=== PATIENT | female | born 1960 | race African-American/Black ===

== ENCOUNTER 2016-12-13 14:15 | Emergency (ER) | payer MEDICARE, MEDICAID ==
--- NOTE | 2016-12-13 16:29 | RAD ---
ABDOMEN ONE VIEW: HISTORY: Abdominal pain, starting a few days ago. COMPARISON: 06/07/2011 FINDINGS: One view abdomen shows a nonspecific bowel gas pattern. No suspicious densities in the abdomen or p lukas. No evidence of pneumoperitoneum on this supine projection. Calcifications in the left and right hemipelvis are presumed to be phleboliths. The visualized osseous structures are unremarkable. IMPRESSION: Nonspecific bowel gas pattern. POS: [facility]
== END 2016-12-13 16:45 | disposition home or self-care (01) ==
LOC: ERS 14:15
DX: R10.9 Unspecified abdominal pain (principal); E11.9 Type 2 diabetes mellitus without complications; E78.5 Hyperlipidemia, unspecified; I10 Essential (primary) hypertension; F31.9 Bipolar disorder, unspecified; F41.9 Anxiety disorder, unspecified; F25.9 Schizoaffective disorder, unspecified; F17.210 Nicotine dependence, cigarettes, uncomplicated
CPT/HCPCS: 74000; 93005

== ENCOUNTER 2017-02-02 01:07 | Inpatient (IN) | payer MEDICARE, MEDICAID ==
[2017-02-02 02:21] LABS: #Basophils 0.2 thou/uL (0.0-0.2); #Eosinphils 0.1 thou/uL (0.0-0.7); #Monocytes 1.2 thou/uL (0.11-0.59); #Neutrophils 10.7 thou/uL (1.40-6.50); %Basophils 1.6 % (0.0-1.0); %Eosinophils 0.9 % (0.0-10.0); %Lymphocytes 19.7 % (21.0-51.0); %Monocytes 7.7 % (0.0-10.0); Hematocrit 30.6 % (36.0-47.0); Mean Platelet Volume 7.3 fL (7.4-10.4); White Blood Cell (WBC) Count 15.3 thou/uL (4.8-10.8)
[2017-02-02 02:36] LABS: Lactic Acid - Sepsis 2.2 mmol/L (0.5-2.2)
[2017-02-02 02:40] LABS: ALT (SGPT) 25 U/L (8-55); AST (SGOT) 37 U/L (5-34); Alkaline Phosphatase 254 U/L (40-150); Anion Gap 14 mmol/L (10-20); BUN (Urea Nitrogen) 16 mg/dL (9.8-20.1); Bilirubin, Total 1.1 mg/dL (0.2-1.2); Calc. Creatinine Clearance 0 mL/min (70-130); Calcium 9.8 mg/dL (7.8-10.44); Carbon Dioxide 29 mmol/L (22-29); Chloride 96 mmol/L (98-107); Estimated GFR-MDRD 65; Globulin 4.9 g/dL (2.4-3.5); Protein, Total 8.5 g/dL (6.0-8.3)
[2017-02-02] MEDS ORDERED: cefTRIAXone\\ROCEPHIN 2 GM in Sodium Chloride 0.9% 100 ML IVPB SCH ×2 (03:45→16:00)
[2017-02-02] MEDS ORDERED: Azithromycin 500 MG in Sodium Chloride 0.9% 250 ML 250 ML IVPB SCH (03:45)
--- NOTE | 2017-02-02 10:05 | RAD ---
UPRIGHT PORTABLE CHEST 1 VIEW: HISTORY: A 56-year-old female with chest pain status post coronary artery bypass graft with drainage from lef t leg. FINDINGS: Monitor leads overlie the chest. Minimal enlargement of the cardiomediastinal silhouette. There is bilateral vascular congestion. Minimal right hemidiaphragm elevation with some increased markings in the right base, possibly some subsegmental atelectasis. No confluent pneumonia. IMPRESSION: Bilateral vascular congestion. Borderline heart size. Recent postop midline sternotomy. Probable small right pleural effusion and minimal right lower lobe subsegmental atelectasis. Continue short- term followup. POS: [facility]
[2017-02-02] MEDS ORDERED: Potassium Chloride 20 MEQ TAB PO SCH (10:30)
[2017-02-02] MEDS ORDERED: Furosemide 40 MG/4 ML VIAL SLOW IVP SCH (10:30)
[2017-02-02] MEDS ORDERED: HYDROcodone/Acetaminophen 5/325 mg Tablet PO PRN ×2 (11:11)
[2017-02-02] MEDS: Milk Of Magnesia 30 ML UDCUP PO PRN (11:14)
[2017-02-02] MEDS ORDERED: Aspirin 325 MG TAB PO SCH (11:30)
[2017-02-02] MEDS ORDERED: Metoprolol Tartrate 25 MG TAB PO SCH (11:30)
[2017-02-02] MEDS ORDERED: Levothyroxine Sodium 125 MCG TAB PO SCH (11:30)
[2017-02-02] MEDS ORDERED: busPIRone HCl 10 MG TAB PO SCH (11:30)
[2017-02-02] MEDS: Enoxaparin Sodium 40 MG/0.4 ML SYRINGE SC SCH (12:51)
[2017-02-02] MEDS ORDERED: PROVENTIL INHALER 6.7 G (200 INHALATIONS) INH SCH (13:00)
--- NOTE | 2017-02-02 14:13 | ULT ---
PRELIMINARY REPORT/[facility]/EMERGENCY AFTER HOURS PROCEDURE: EXAM: US Duplex Bilateral Lower Extremity Veins EXAM DATE/TIME: Exam ordered 02/02/2017 3:05 AM CLINICAL HISTORY: 56 years old, female; Pain; Other: Ble pain; Prior surgery; Surgery date: <1 month; Surgery type: Ca b harvest- lt thigh TECHNIQUE: Real-time ultrasound scan of the veins of the bilateral lower extremities with color Doppler flow, s pectral waveform analysis and compression. COMPARISON: No relevant prior studies available. FINDINGS: Right deep veins: Normal. No DVT in the right common femoral, femoral, proximal deep femoral or popl iteal veins. The veins demonstrate normal color flow, are normally compressible, with normal phasic flow and/or augmentation response. Right superficial veins: Normal. No thrombus in the visualized right great saphenous vein. Left deep veins: Normal. No DVT in the left common femoral, femoral, proximal deep femoral or poplit eal veins. The veins demonstrate normal color flow, with normal phasic flow and/or augmentation resp onse. Limited compressibility of the LEFT femoral vein due to open wound. Left superficial veins: Normal. No thrombus in the visualized left great saphenous vein. Soft tissues: No acute findings. No popliteal cyst. IMPRESSION: No evidence for acute DVT on either side. Thank you for allowing us to participate in the care of your patient. Dictated and Authenticated by: Ramana Neumann MD 02/02/2017 6:56 AM Central Time ([place] \[place]\ [place]) FINAL REPORT BILATERAL LOWER EXTREMITY VENOUS DUPLEX ULTRASOUND INCLUDING COLOR AND SPECTRAL DOPPLER IMAGING: EMERGENT AFTER HOURS EXAM TIME: 3:47 a.m. DATE: 02/02/17. Exam performed from groin to ankle including visualized greater saphenous, common femoral, superfici al femoral, profunda femoral, popliteal, trifurcation, and posterior tibial vein regions. There is phasic flow at all levels with normal compressibility and normal augmentation. No intraluminal thro mbus. IMPRESSION: No evidence for deep venous thrombosis. POS: [facility]
[2017-02-02] MEDS: PROVENTIL INHALER 6.7 G (200 INHALATIONS) INH SCH ×2 (14:52→20:10)
[2017-02-02 16:36] LABS: Anion Gap 16 mmol/L (10-20); BUN (Urea Nitrogen) 13 mg/dL (9.8-20.1); Calc. Creatinine Clearance 137 mL/min (70-130); Calcium 9.2 mg/dL (7.8-10.44); Carbon Dioxide 28 mmol/L (22-29); Chloride 99 mmol/L (98-107); Estimated GFR-MDRD 75
[2017-02-02] MEDS: busPIRone HCl 10 MG TAB PO SCH (21:35)
[2017-02-02] MEDS: Metoprolol Tartrate 25 MG TAB PO SCH (21:36)
--- NOTE | 2017-02-02 22:39 | HP ---
DATE OF ADMISSION: 02/02/2017 REASON FOR ADMISSION AND CHIEF COMPLAINT: Wound dehiscence and shortness of breath, chest tightness . HISTORY OF PRESENT ILLNESS: Ms. Martin is a 56-year-old -[place] female with past medical history of coronary artery disease status post CABG, hypothyroidism, hypertension, came because of a wound dehiscence. The patient states the wound started to open up. The patient had a CABG done week and she said that one on the chest is opening up, also in the leg, also feeling very short o f breath especially on exertion as well as she has orthopnea and paroxysmal nocturnal dyspnea. No f ever or cough; does have tightness in the chest. Because of these symptoms, the patient decided to come to the hospital. In the ER, the patient was evaluated. ER physician thought the patient possi juan jose have some pneumonia in the right lower lobe, got it hazy and Holter monitor is not clear, but sh e did not have any fever, no leukocytosis. Chest x-ray was suggestive of fluid overload. The patie nt was given Rocephin and Zithromax in the ER. She is admitted for further evaluation and managemen t. PAST MEDICAL HISTORY: 1. Coronary artery disease status post CABG last week. 2. Hypertension. 3. Hypothyroidism. 4. Bipolar disorder. 5. Hyperlipidemia. 6. History of pulmonary embolism, not on Coumadin. The patient was noncompliant. 7. History of breast cancer, right breast. 8. Status post myocardial infarction. PAST SURGICAL HISTORY: 1. Status post coronary artery bypass graft last week. 2. Status post modified radical mastectomy, right side. 3. Status post . CURRENT MEDICATIONS: The patient is on albuterol inhaler q.i.d., aspirin 325 mg daily, Lipitor 80 m g daily, benztropine 2 mg b.i.d., BuSpar 10 mg b.i.d., Keflex 500 t.i.d., Zetia 10 mg daily, [place] q .i.d. q.4 hours p.r.n., levothyroxine 125 mcg daily, metoprolol 50 mg b.i.d. ALLERGIES: No known drug allergies. FAMILY HISTORY: Nothing of interest. SOCIAL HISTORY: The patient lives with family. No history of alcohol intake. Smokes one pack a da y. REVIEW OF SYSTEMS: Cardiovascular: Has chest tightness and shortness of breath. Respiratory: No fever or cough. Gastrointestinal: No nausea or vomiting. No abdominal pain. Genitourinary: No d ysuria or hematuria. Central nervous system: No headache, no dizziness. PHYSICAL EXAMINATION: GENERAL: The patient is alert, awake, oriented x3. VITAL SIGNS: Temperature 98, pulse 90, respirations 20, blood pressure 115/80. HEENT: Head is normocephalic, atraumatic. Pupils are equal and reactive to light. Nasopharynx is pale and dry. Hard and soft palate, no lesions seen. SKIN: Skin turgor decreased. NECK: Supple. No JVD. LUNGS: Bilateral air entry present. Rales present bilaterally. Chest wall incision area opening u p in the middle of the sternum and also in the leg. CARDIAC: S1, S2 regular. ABDOMEN: Soft, no distention, no tenderness. Normal bowel sounds present. RECTAL: Deferred. CENTRAL NERVOUS SYSTEM: No focal deficits. LABORATORY AND X-RAY FINDINGS: CBC shows WBC 15, hemoglobin 10, hematocrit 30, platelets 518. [place] bolic panel: Sodium 132, potassium 3.6, chloride 106, CO2 of 20, BUN 16, creatinine 1, glucose 168, CK-MB not done. BNP was 243. Chest x-ray shows pulmonary vascular congestion and subsegmental ate lectasis right lower lobe. Venogram negative. EKG shows normal sinus rhythm, no acute ST-T wave ch anges seen. ASSESSMENT: 1. Fluid overload. 2. Wound dehiscence. 3. Coronary artery disease, status post coronary artery bypass graft. 4. Hypertension. 5. Hypothyroidism. 6. Bipolar disorder. PLAN: 1. Vital signs q.4 hours. 2. Activity: As tolerated. 3. Allergies: No known drug allergies. 4. Hep-Lock. 5. Levaquin 750 IV piggyback daily. 6. Wound care. 7. Continue home medications 8. Consult Cardiovascular Surgery. 9. Lasix 40 mg IVP daily. 10. KCl 20 mEq daily.
[2017-02-03] MEDS: Levothyroxine Sodium 125 MCG TAB PO SCH (06:51)
[2017-02-03] MEDS: PROVENTIL INHALER 6.7 G (200 INHALATIONS) INH SCH ×4 (07:27→19:27)
[2017-02-03 07:51] LABS: Anion Gap 18 mmol/L (10-20); BUN (Urea Nitrogen) 10 mg/dL (9.8-20.1); Calc. Creatinine Clearance 145 mL/min (70-130); Calcium 9.2 mg/dL (7.8-10.44); Carbon Dioxide 24 mmol/L (22-29); Chloride 99 mmol/L (98-107); Estimated GFR-MDRD 80
[2017-02-03] MEDS: Metoprolol Tartrate 25 MG TAB PO SCH ×2 (08:45→20:42)
[2017-02-03] MEDS: Aspirin 325 MG TAB PO SCH (08:45)
[2017-02-03] MEDS: Atorvastatin Calcium 40 MG TAB PO SCH (08:45)
[2017-02-03] MEDS: busPIRone HCl 10 MG TAB PO SCH ×2 (08:46→20:42)
[2017-02-03] MEDS: Enoxaparin Sodium 40 MG/0.4 ML SYRINGE SC SCH (08:46)
[2017-02-03] MEDS: Potassium Chloride 20 MEQ TAB PO SCH ×2 (08:46→20:41)
[2017-02-03] MEDS: Furosemide 40 MG/4 ML VIAL SLOW IVP SCH (08:47)
[2017-02-03 13:22] VITALS: BMI 48.0
[2017-02-04] MEDS: Potassium Chloride 20 MEQ TAB PO SCH ×3 (03:11→10:27)
[2017-02-04] MEDS: Levothyroxine Sodium 125 MCG TAB PO SCH (05:26)
[2017-02-04] MEDS: PROVENTIL INHALER 6.7 G (200 INHALATIONS) INH SCH ×4 (07:10→20:03)
[2017-02-04] MEDS: Enoxaparin Sodium 40 MG/0.4 ML SYRINGE SC SCH (10:26)
[2017-02-04] MEDS: Furosemide 40 MG/4 ML VIAL SLOW IVP SCH (10:26)
[2017-02-04] MEDS: Metoprolol Tartrate 25 MG TAB PO SCH ×2 (10:26→20:29)
[2017-02-04] MEDS: Atorvastatin Calcium 40 MG TAB PO SCH (10:27)
[2017-02-04] MEDS: Aspirin 325 MG TAB PO SCH (10:27)
[2017-02-04] MEDS: busPIRone HCl 10 MG TAB PO SCH ×2 (10:27→20:29)
[2017-02-05] MEDS: Acetaminophen/Codeine 30-300mg Tablet PO PRN ×2 (02:30→19:13)
[2017-02-05 05:21] LABS: Anion Gap 15 mmol/L (10-20); BUN (Urea Nitrogen) 11 mg/dL (9.8-20.1); Calc. Creatinine Clearance 140 mL/min (70-130); Calcium 9.6 mg/dL (7.8-10.44); Carbon Dioxide 25 mmol/L (22-29); Chloride 99 mmol/L (98-107); Estimated GFR-MDRD 77
[2017-02-05] MEDS: Levothyroxine Sodium 125 MCG TAB PO SCH (05:32)
[2017-02-05] MEDS: PROVENTIL INHALER 6.7 G (200 INHALATIONS) INH SCH ×4 (08:41→18:50)
[2017-02-05] MEDS: busPIRone HCl 10 MG TAB PO SCH ×2 (09:17→21:16)
[2017-02-05] MEDS: Potassium Chloride 20 MEQ TAB PO SCH (09:17)
[2017-02-05] MEDS: Metoprolol Tartrate 25 MG TAB PO SCH ×2 (09:17→21:16)
[2017-02-05] MEDS: Furosemide 40 MG/4 ML VIAL SLOW IVP SCH (09:17)
[2017-02-05] MEDS: Atorvastatin Calcium 40 MG TAB PO SCH (09:17)
[2017-02-05] MEDS: Aspirin 325 MG TAB PO SCH (09:17)
[2017-02-05] MEDS: Enoxaparin Sodium 40 MG/0.4 ML SYRINGE SC SCH (09:18)
--- NOTE | 2017-02-05 10:22 | RAD ---
CHEST TWO VIEWS: Comparison: 02-02-17 History: Pneumonia. FINDINGS: Heart size is enlarged. There are post op sternotomy changes. Vascular engorgement has diminished as compared to the prior exam. The parenchymal changes in the right base have largely resolved. IMPRESSION: Cardiomegaly with resolution of the pulmonary vascular engorgement. Persistent mild elevation of the right hemidiaphragm. POS: [facility]
[2017-02-06] MEDS: Levothyroxine Sodium 125 MCG TAB PO SCH (06:19)
[2017-02-06] MEDS: PROVENTIL INHALER 6.7 G (200 INHALATIONS) INH SCH ×4 (07:31→18:40)
[2017-02-06] MEDS ORDERED: FLUPHENAZINE IM SCH (09:00)
[2017-02-06] MEDS: busPIRone HCl 10 MG TAB PO SCH ×2 (09:43→20:23)
[2017-02-06] MEDS: Aspirin 325 MG TAB PO SCH (09:43)
[2017-02-06] MEDS: Atorvastatin Calcium 40 MG TAB PO SCH (09:43)
[2017-02-06] MEDS: Metoprolol Tartrate 25 MG TAB PO SCH ×2 (09:43→20:23)
[2017-02-06] MEDS: Potassium Chloride 20 MEQ TAB PO SCH (09:43)
[2017-02-06] MEDS: Furosemide 40 MG TAB PO SCH (09:43)
[2017-02-06] MEDS: Enoxaparin Sodium 40 MG/0.4 ML SYRINGE SC SCH (09:44)
--- NOTE | 2017-02-06 12:49 | PQF ---
CLINICAL DOCUMENTATION IMPROVEMENT CLARIFICATION FORM: ICD-10 Updated PLEASE DO AN ADDENDUM TO THE PROGRESS NOTE WITH ANY DOCUMENTATION UPDATES OR ADDITIONS AND CARRY THROUGH TO DC SUMMARY. THANK YOU. DATE: 02/06/17 ATTN: Dr. Brasher Please exercise your independent, professional judgment in responding to the clarification form. Clinical indicators are provided on the bottom of this form for your review Please check appropriate box(s): HEART FAILURE: A.TYPE: [ y ] Systolic / HFrEF [ ] Diastolic / HFpEF [ ] Combined Systolic / Diastolic B.ACUITY [ y ] Acute [ ] Acute on Chronic [ ] Chronic C.WITH (if appropriate) [ ] Hypertensive Heart Disease[ ] Hypertensive Heart and Kidney Disease [ ] Other diagnosis ____fluid [ ] Unable to determine For continuity of documentation, please document condition throughout progress notes and discharge summary. Thank You. CLINICAL INDICATORS - SIGNS / SYMPTOMS / LABS H&P: BNP 243 CHEST X-RAY SHOWS PULMONARY VASCULAR CONGESTION & SUBSEGMENTAL ATELECTASIS RLL. FLUID OVERLOAD ECHO 02/02: EF IS VISUALLY ESTIMATED @ 40-45 PN 02/05: CHEST XRY CHF IMPROVED RISKS: H&P:HX OF CAD. CABG DONE LAST WEEK. HTN. S/P NC. TREATMENT: ORDER 02/02: FOR IV LASIX 40 MG 0900. DC'D 02/05/17. ORDER 02/05: LASIX 40 MG PO Q AM ORDER 02/02: RESP: 02 TO KEEP SATS 92% Thank you, Brittani (This form is maintained as a part of the permanent medical record) 2015 [employer]. All Rights Reserved Brittani Pulido RN, BSN [email or web address] Office: [phone] [facility]
[2017-02-07] MEDS: Levothyroxine Sodium 125 MCG TAB PO SCH (05:27)
[2017-02-07 05:39] LABS: #Basophils 0.2 thou/uL (0.0-0.2); #Eosinphils 0.3 thou/uL (0.0-0.7); #Monocytes 0.9 thou/uL (0.11-0.59); #Neutrophils 5.3 thou/uL (1.40-6.50); %Basophils 1.7 % (0.0-1.0); %Eosinophils 3.8 % (0.0-10.0); %Lymphocytes 23.2 % (21.0-51.0); %Monocytes 10.2 % (0.0-10.0); Mean Platelet Volume 6.6 fL (7.4-10.4); Red Blood Cell (RBC) Count 3.67 mill/uL (4.20-5.40); White Blood Cell (WBC) Count 8.7 thou/uL (4.8-10.8)
[2017-02-07 05:46] LABS: Anion Gap 12 mmol/L (10-20); BUN (Urea Nitrogen) 10 mg/dL (9.8-20.1); Calc. Creatinine Clearance 163 mL/min (70-130); Calcium 9.6 mg/dL (7.8-10.44); Carbon Dioxide 27 mmol/L (22-29); Chloride 102 mmol/L (98-107); Estimated GFR-MDRD 89
[2017-02-07] MEDS: PROVENTIL INHALER 6.7 G (200 INHALATIONS) INH SCH ×4 (08:04→18:46)
[2017-02-07] MEDS: Metoprolol Tartrate 25 MG TAB PO SCH ×2 (09:26→20:57)
[2017-02-07] MEDS: Atorvastatin Calcium 40 MG TAB PO SCH (09:26)
[2017-02-07] MEDS: Furosemide 40 MG TAB PO SCH (09:27)
[2017-02-07] MEDS: busPIRone HCl 10 MG TAB PO SCH ×2 (09:27→20:57)
[2017-02-07] MEDS: Potassium Chloride 20 MEQ TAB PO SCH (09:27)
[2017-02-07] MEDS: Aspirin 325 MG TAB PO SCH (09:27)
[2017-02-07] MEDS: Enoxaparin Sodium 40 MG/0.4 ML SYRINGE SC SCH (11:49)
[2017-02-07] MEDS: Acetaminophen/Codeine 30-300mg Tablet PO PRN (20:57)
[2017-02-08] MEDS: Levothyroxine Sodium 125 MCG TAB PO SCH (06:41)
[2017-02-08] MEDS: PROVENTIL INHALER 6.7 G (200 INHALATIONS) INH SCH ×4 (07:25→18:50)
[2017-02-08] MEDS: Aspirin 325 MG TAB PO SCH (11:05)
[2017-02-08] MEDS: Metoprolol Tartrate 25 MG TAB PO SCH ×2 (11:06→20:47)
[2017-02-08] MEDS: Atorvastatin Calcium 40 MG TAB PO SCH (11:06)
[2017-02-08] MEDS: Furosemide 40 MG TAB PO SCH (11:06)
[2017-02-08] MEDS: Potassium Chloride 20 MEQ TAB PO SCH (11:07)
[2017-02-08] MEDS: busPIRone HCl 10 MG TAB PO SCH ×2 (11:07→20:47)
[2017-02-08] MEDS: Enoxaparin Sodium 40 MG/0.4 ML SYRINGE SC SCH (11:08)
[2017-02-09] MEDS: Levothyroxine Sodium 125 MCG TAB PO SCH (05:33)
[2017-02-09] MEDS: PROVENTIL INHALER 6.7 G (200 INHALATIONS) INH SCH ×4 (07:31→21:36)
[2017-02-09] MEDS: Enoxaparin Sodium 40 MG/0.4 ML SYRINGE SC SCH (10:58)
[2017-02-09] MEDS: Atorvastatin Calcium 40 MG TAB PO SCH (10:58)
[2017-02-09] MEDS: Potassium Chloride 20 MEQ TAB PO SCH (10:58)
[2017-02-09] MEDS: Aspirin 325 MG TAB PO SCH (10:58)
[2017-02-09] MEDS: busPIRone HCl 10 MG TAB PO SCH ×2 (10:58→20:42)
[2017-02-09] MEDS: Furosemide 40 MG TAB PO SCH (10:59)
[2017-02-09] MEDS: Metoprolol Tartrate 25 MG TAB PO SCH ×2 (10:59→20:42)
[2017-02-09] MEDS: Milk Of Magnesia 30 ML UDCUP PO PRN (15:51)
[2017-02-10] MEDS: Levothyroxine Sodium 125 MCG TAB PO SCH (05:32)
[2017-02-10] MEDS: PROVENTIL INHALER 6.7 G (200 INHALATIONS) INH SCH ×4 (07:10→19:42)
[2017-02-10] MEDS: Enoxaparin Sodium 40 MG/0.4 ML SYRINGE SC SCH (09:21)
[2017-02-10] MEDS: Aspirin 325 MG TAB PO SCH (09:22)
[2017-02-10] MEDS: Metoprolol Tartrate 25 MG TAB PO SCH ×2 (09:22→22:09)
[2017-02-10] MEDS: Atorvastatin Calcium 40 MG TAB PO SCH (09:22)
[2017-02-10] MEDS: busPIRone HCl 10 MG TAB PO SCH ×2 (09:22→22:10)
[2017-02-10] MEDS: Potassium Chloride 20 MEQ TAB PO SCH (09:22)
[2017-02-10] MEDS: Furosemide 40 MG TAB PO SCH (09:23)
[2017-02-10] MEDS: Acetaminophen/Codeine 30-300mg Tablet PO PRN (12:21)
[2017-02-11] MEDS: Levothyroxine Sodium 125 MCG TAB PO SCH (05:16)
[2017-02-11] MEDS: PROVENTIL INHALER 6.7 G (200 INHALATIONS) INH SCH ×2 (07:02→10:31)
[2017-02-11] MEDS ORDERED: Prevnar 13-Val Conj/PF 0.5 ML SYRINGE IM ONE (09:00)
[2017-02-11] MEDS: Enoxaparin Sodium 40 MG/0.4 ML SYRINGE SC SCH (09:12)
[2017-02-11] MEDS: Aspirin 325 MG TAB PO SCH (09:12)
[2017-02-11] MEDS: Furosemide 40 MG TAB PO SCH (09:13)
[2017-02-11] MEDS: Metoprolol Tartrate 25 MG TAB PO SCH (09:13)
[2017-02-11] MEDS: Potassium Chloride 20 MEQ TAB PO SCH (09:13)
[2017-02-11] MEDS: busPIRone HCl 10 MG TAB PO SCH (09:13)
[2017-02-11] MEDS: Atorvastatin Calcium 40 MG TAB PO SCH (09:13)
[2017-02-11 11:59] VITALS: BP 126/63; TEMP 98.9
--- NOTE | 2017-02-12 11:33 | DIS ---
DATE OF ADMISSION: 02/02/2017 DATE OF DISCHARGE: 02/11/2017 ADMITTING DIAGNOSES: 1. Fluid overload. 2. Wound dehiscence and infection. 3. Coronary artery disease, status post coronary artery bypass graft. 4. Hypertension. 5. Hypothyroidism. 6. Bipolar disorder. FINAL DIAGNOSES: 1. Fluid overload due to acute systolic heart failure, improved. 2. Wound dehiscence and infection, improving, status post wound VAC. 3. Coronary artery disease, status post coronary artery bypass graft. 4. Hypertension. 5. Hypothyroidism. 6. Bipolar disorder. BRIEF SUMMARY OF HOSPITAL COURSE: Ms. Martin is a 56-year-old -[place] Islander female admitted shahrzad use of wound infection. The patient had CABG done recently. Her wound also opened up and the stem r adiated in the left leg area. The patient was also found to have shortness of breath, found to be in fluid overload. She was given Lasix after that, which improved her CHF. Wound Care team consult wa s done and the patient underwent wound care management and consultation was done with Cardiovascular Surgery. The patient was seen by Dr. Storey. He suggested wound cleaning, then wound VAC placement on the left leg area. Chest wound is healing well. The patient was continued on levofloxacin for an tibiotic, so wound VAC was placed and an echocardiogram was done, which showed decreased LV function with an ejection fraction of 45%. The patient was maintained on Lasix and Levaquin and wound care. Case management consult was done in view of her wound care to arrange for home wound VAC. It took fe w days for them to arrange her wound VAC because of insurance problems. Finally, it was arranged and home health was arranged. The patient is being discharged home. At the time of discharge, she was stable. Her vital signs were stable. Lungs were clear. Heart sounds were regular. Abdomen was sof t and nontender. Bowel sounds were present. DISCHARGE MEDICATIONS: Include levothyroxine 125 mcg daily, Lipitor 80 mg daily, Cogentin 2 mg b.i.d ., albuterol inhaler 2 puffs q.i.d., BuSpar 10 mg b.i.d., aspirin 325 mg daily, Zetia 10 mg daily, No rco p.r.n., metoprolol 50 b.i.d., Keflex was discontinued, Prolixin D to continue, levofloxacin 750 d aily for 10 days, Lasix 40 mg daily, and KCl 20 mEq daily. DISCHARGE FOLLOWUP: The patient will come for followup in 2 weeks.
== END 2017-02-11 12:35 | disposition home health service (06) | DRG 919 ==
LOC: ERS 01:07 → 2NO 04:20
PROVIDERS: ADMIT Internal Medicine; ATTEND Internal Medicine
DX: T81.31XA Disruption of external operation (surgical) wound, not elsewhere classified, initial encounter (principal); I50.21 Acute systolic (congestive) heart failure; Z68.42 Body mass index [BMI] 45.0-49.9, adult; T81.4XXA Infection following a procedure, initial encounter; E87.70 Fluid overload, unspecified; F20.9 Schizophrenia, unspecified; I25.10 Atherosclerotic heart disease of native coronary artery without angina pectoris; Z95.1 Presence of aortocoronary bypass graft; E03.9 Hypothyroidism, unspecified; F31.9 Bipolar disorder, unspecified; E78.5 Hyperlipidemia, unspecified; Z86.711 Personal history of pulmonary embolism; Z85.3 Personal history of malignant neoplasm of breast; I25.2 Old myocardial infarction; Z79.82 Long term (current) use of aspirin; Z79.51 Long term (current) use of inhaled steroids; F17.210 Nicotine dependence, cigarettes, uncomplicated; E87.6 Hypokalemia; I11.0 Hypertensive heart disease with heart failure; F41.9 Anxiety disorder, unspecified; F32.9 Major depressive disorder, single episode, unspecified; E66.01 Morbid (severe) obesity due to excess calories
CPT/HCPCS: 36415; 71010; 71020; 80048; 80053; 83605; 83880; 85025; 87040; 87070; 87077; 87186; 87205; 90471; 90670; 93005; 93306; 93798; 93970; 94664; 94760; 96365; 96367; A4216; G0009; J0456; J0696; J1650; J1940; J1956; J7050

== ENCOUNTER 2017-02-18 00:06 | Emergency (ER) | payer MEDICARE, MEDICAID | END 2017-02-18 02:01 | disposition home or self-care (01) | LOC: ERS 00:06 | DX: S71.102D Unspecified open wound, left thigh, subsequent encounter (principal); E11.9 Type 2 diabetes mellitus without complications; E78.5 Hyperlipidemia, unspecified; I10 Essential (primary) hypertension; F41.9 Anxiety disorder, unspecified; F31.9 Bipolar disorder, unspecified; F25.9 Schizoaffective disorder, unspecified; Z87.891 Personal history of nicotine dependence; X58.XXXD Exposure to other specified factors, subsequent encounter | CPT/HCPCS: 99283 ==

== ENCOUNTER 2017-03-07 16:59 | Inpatient (IN) | payer MEDICARE, MEDICAID ==
--- NOTE | 2017-03-07 17:26 | RAD ---
RADIOGRAPH CHEST 1 VIEW: HISTORY: 56-year-old female with tachypnea, lethargy, nausea, and emesis. FINDINGS: There is no air space density, pulmonary edema, or pneumothorax. The lateral costophrenic angles are sharp. IMPRESSION: No acute pulmonary findings. reid [] POS: [facility]
[2017-03-07] MEDS ORDERED: Acetaminophen 500 MG TAB ONE (17:29)
[2017-03-07] MEDS ORDERED: ISOVUE-370 76%-LOCM 1 ML ONE (17:30)
[2017-03-07 17:45] LABS: #Eosinphils 0.1 thou/uL (0.0-0.7); #Lymphocytes 2.5 thou/uL (1.20-3.40); #Neutrophils 4.9 thou/uL (1.40-6.50); %Basophils 0.3 % (0.0-1.0); %Monocytes 11.4 % (0.0-10.0); Red Blood Cell (RBC) Count 4.49 mill/uL (4.20-5.40); White Blood Cell (WBC) Count 8.5 thou/uL (4.8-10.8)
[2017-03-07 18:06] LABS: Lactic Acid - Sepsis 2.1 mmol/L (0.5-2.2)
[2017-03-07 18:10] LABS: ALT (SGPT) 23 U/L (8-55); AST (SGOT) 26 U/L (5-34); Alkaline Phosphatase 274 U/L (40-150); Anion Gap 12 mmol/L (10-20); BUN (Urea Nitrogen) 9 mg/dL (9.8-20.1); Bilirubin, Total 1.6 mg/dL (0.2-1.2); Calc. Creatinine Clearance 0 mL/min (70-130); Calcium 9.6 mg/dL (7.8-10.44); Carbon Dioxide 26 mmol/L (22-29); Chloride 100 mmol/L (98-107); Estimated GFR-MDRD 85; Globulin 4.4 g/dL (2.4-3.5); Protein, Total 7.9 g/dL (6.0-8.3)
[2017-03-07 18:52] LABS: Bilirubin Small (Negative); Blood, Urine Negative (Negative); Glucose, Urine (Dipstick) Negative (Negative); Ketone, Urine Negative (Negative); Nitrite Negative (Negative); Protein, Urine (Dipstick) Trace mg/dL (Neg-Trace)
[2017-03-07 18:55] LABS: Bacteria/HPF None Seen HPF (None Seen); Hyaline Casts/LPF 0-3 HYALINE CAST LPF (0-3 Hyaline); Squamous Epithelial 0-3 HPF (0-3); WBC/HPF 0-3 HPF (0-3)
--- NOTE | 2017-03-07 21:39 | CT ---
CTA THORAX WITH CONTRAST: 03/07/17 (Computed Tomographic Angiography, chest(noncoronary) with contrast material, and image postprocessin g) (PE protocol) HISTORY: 56-year-old female with dyspnea. TECHNIQUE: IV injection of iodinated contrast: Isovue Scan acquisition timing attempted to coincide with iodinated contrast bolus reaching maximal density in pulmonary arteries. 3D MIP reconstructions. FINDINGS: There is no evidence of pulmonary thromboembolism. No thoracic aortic aneurysm or dissection. There a re multiple moderately enlarged mediastinal lymph nodes. One of the larger ones is a 2 x 2 cm lymph n ode in the prevascular space. There is cardiomegaly. There is a small pericardial effusion. There is a small left pleural effusion and a tiny right pleural effusion. There is no harry pulmonary alveolar edema or consolidation. No pneumothorax. There are sternotomy wires. Midline sternotomy defect witho ut evidence of healing. Absence of the right breast. IMPRESSION: 1. No evidence of pulmonary thromboembolism. 2. Small left pleural effusion and small pericardial effusion. 3. Mediastinal lymphadenopathy. 4. Cardiomegaly. 5. Status post coronary artery bypass graft surgery is evidence for coronary atherosclerotic dis ease. 6. Status post right mastectomy is evidence for right breast cancer. jn[] POS: [facility]
[2017-03-07] MEDS ORDERED: Acetaminophen 325 MG TAB PO PRN (23:12)
[2017-03-07] MEDS ORDERED: Ondansetron ODT 4 MG TAB SL PRN (23:12)
[2017-03-07] MEDS ORDERED: HYDROcodone/Acetaminophen 5/325 mg Tablet PO PRN ×2 (23:12)
[2017-03-07] MEDS ORDERED: Ondansetron HCl/PF 4 MG/2 ML Vial IVP PRN (23:12)
[2017-03-07] MEDS ORDERED: Azithromycin 500 MG in Sodium Chloride 0.9% 250 ML 250 ML IVPB SCH (23:15)
[2017-03-07] MEDS ORDERED: cefTRIAXone\\ROCEPHIN 1 GM, Syringe 0.4 ML in Sterile Water 9.6 ML SLOW IVP SCH (23:30)
[2017-03-07] MEDS: Sodium Chloride 0.9% 1,000 ML IV SCH (23:43)
[2017-03-08] MEDS: Sodium Chloride 0.9% 1,000 ML IV SCH (11:09)
--- NOTE | 2017-03-08 11:09 | ULT ---
BILATERAL LOWER EXTREMITY VENOUS DUPLEX EXAM: HISTORY: Shortness of breath. Injury to left lower extremity with wound vac to medial left thigh region. FINDINGS: Deep veins of both lower extremities evaluated with color Doppler, spectral analysis, and compression . Deep veins of both lower extremities show normal blood flow and compression. No evidence of DVT iden tified. IMPRESSION: No evidence of lower extremity deep vein thrombosis. POS: [facility]
[2017-03-08] MEDS ORDERED: PROVENTIL INHALER 6.7 G (200 INHALATIONS) INH PRN (15:28)
[2017-03-08] MEDS ORDERED: busPIRone HCl 10 MG TAB PO SCH (15:30)
[2017-03-08] MEDS ORDERED: Ondansetron HCl/PF 4 MG/2 ML Vial SLOW IVP SCH (16:00)
[2017-03-08] MEDS: HYDROcodone/Acetaminophen 5/325 mg Tablet PO PRN (18:07)
[2017-03-08] MEDS: Piperacillin/Tazobactam 3.375 GM in Sodium Chloride 0.9% 100 ML IVPB SCH (18:08)
--- NOTE | 2017-03-08 20:51 | HP ---
DATE OF ADMISSION: 03/07/2017 REASON/CHIEF COMPLAINT: Nausea, vomiting and fever. He is not feeling well. HISTORY OF PRESENT ILLNESS: Ms. Martin is a 56-year-old -Slov[place] female who was recently in the hospital for wound infection, dehiscence, started having nausea, vomiting, and not feeling well, but no abdominal pain. Patient says she vomited a few times. Initially, she states there was no fe teresa at home. No cough, no chest pain, no shortness of breath. The patient says she has been to [facility] , had shortness of breath 2 days ago. Patient was admitted to the hospital recently for wound dehisc ence after CABG, the wound dehiscence on the left thigh area and she was treated with antibiotics and then wound VAC was placed. The patient still has wound VAC now, but she has no pain or swelling or any erythema. So, the patient came to the emergency room where she was evaluated and found to have t emperature of 102.9, pulse of 118, respirations of 37, blood pressure of 130/80. Patient had a tanmay p done. Chest x-ray was negative. Urinalysis was negative. CT angio was negative for PE and influe nza screen was negative. There is no clear reason for her fever. Patient received Tylenol and antib iotics with Rocephin and Zithromax and admitted for further evaluation and management. The patient w as also hypoxic. PAST MEDICAL HISTORY: 1. Coronary artery disease, status post CABG. 2. Hypertension. 3. Hypothyroidism. 4. Systolic heart failure. 5. Bipolar disorder. 6. Hyperlipidemia. 7. History of pulmonary embolism. The patient is not on Coumadin because she was noncompliant. 8. History of breast cancer, status post mastectomy, right breast. 9. Status post NM. PAST SURGICAL HISTORY: 1. Status post CABG. 2. Status post modified radical mastectomy, right. 3. Status post . CURRENT MEDICATIONS: Patient is on Lipitor 80 mg daily, benztropine 2 mg daily, BuSpar 10 mg b.i.d., Zetia 10 mg daily, [place] 5/325 q.i.d. p.r.n., levothyroxine 125 mcg daily, metoprolol 50 mg b.i.d., albuterol inhaler q.i.d., aspirin 325 mg daily, Prolixin D 25 mg every 2 weeks, Lasix 40 mg daily, MARS l 20 mEq daily. ALLERGIES: NKDA. FAMILY HISTORY: Nothing of interest. SOCIAL HISTORY: Patient lives with family. No history of smoking. REVIEW OF SYSTEMS: CARDIOVASCULAR: No chest pain. No shortness of breath. RESPIRATORY: No cough. GASTROINTESTINAL: Has nausea and vomiting. No abdominal pain. GENITOURINARY: No distension. CENTRAL NERVOUS SYSTEM: No headache, no dizziness. PHYSICAL EXAMINATION: GENERAL: The patient is alert, awake, oriented x3. VITAL SIGNS: Temperature 99, pulse 110, respirations 28, blood pressure 120/60. HEENT: Head is normocephalic, atraumatic. Pupils equal and reactive to light. Nasopharynx is pale and dry. Hard and soft palate, no lesions seen. SKIN: Skin turgor decreased. NECK: Supple. No JVD. LUNGS: Bilateral air entry present, no rales, no rhonchi. CARDIAC: S1, S2 regular. ABDOMEN: Soft, no distention, no tenderness. Normal bowel sounds. RECTAL: Deferred. CENTRAL NERVOUS SYSTEM: No focal deficit. EXTREMITIES: There is wound VAC in the left thigh area. No erythema. LABORATORY AND X-RAY FINDINGS: CBC shows WBC 8.5, hemoglobin 11, hematocrit 35, platelets 343. [place] bolic panel: Sodium 134, potassium 3.7, chloride 100, CO2 26, urea nitrogen 9, creatinine 0.9, gluco se 179. Urinalysis negative. Chest x-ray negative, no acute pulmonary findings. CT angio chest brent wed no evidence of pulmonary embolism, small left pleural effusion. There is some mediastinal lympha denopathy. EKG shows sinus tachycardia with heart rate of 110, no acute ST-T wave changes seen. ASSESSMENT: 1. Fever, etiology not clear. 2. Nausea and vomiting. 3. Encephalopathy, metabolic. 4. Coronary artery disease, status post coronary artery bypass graft. 5. Left thigh wound dehiscence, status post wound VAC. 6. Hypothyroidism. 7. Systolic heart failure. 8. Bipolar disorder. PLAN: 1. Vital signs q.4 hours. 2. Activity as tolerated. 3. Allergies: NKDA. 4. Hep-Lock. 5. Zosyn 3.375 grams IV piggyback daily q.6 hours. 6. Zofran 8 mg IVP q.6 hours p.r.n. 7. Cultures. 8. Wound care team consult. 9. Continue her home medications. 10. Consult Dr. Hall. 11. Respiratory virus culture.
[2017-03-08] MEDS ORDERED: Ondansetron HCl/PF 4 MG/2 ML Vial SLOW IVP PRN (22:00)
[2017-03-08] MEDS: Metoprolol Tartrate 50 MG TAB PO SCH (22:02)
[2017-03-08] MEDS: Atorvastatin Calcium 40 MG TAB PO SCH (22:02)
[2017-03-08] MEDS: busPIRone HCl 10 MG TAB PO SCH (22:03)
[2017-03-09] MEDS: Piperacillin/Tazobactam 3.375 GM in Sodium Chloride 0.9% 100 ML IVPB SCH ×4 (00:47→18:45)
[2017-03-09] MEDS: Levothyroxine Sodium 125 MCG TAB PO SCH (05:11)
[2017-03-09] MEDS: Aspirin 325 mg Enteric Coated Tablet PO SCH (09:48)
[2017-03-09] MEDS: Metoprolol Tartrate 50 MG TAB PO SCH ×2 (09:48→21:04)
[2017-03-09] MEDS: Ezetimibe 10 MG TAB PO SCH (09:48)
[2017-03-09] MEDS: busPIRone HCl 10 MG TAB PO SCH ×2 (09:48→21:03)
[2017-03-09] MEDS: Potassium Chloride 20 MEQ TAB PO SCH (09:48)
[2017-03-09] MEDS: Furosemide 40 MG TAB PO SCH (09:48)
[2017-03-09] MEDS: HYDROcodone/Acetaminophen 5/325 mg Tablet PO PRN (15:43)
--- NOTE | 2017-03-09 18:36 | CON ---
DATE OF CONSULTATION: 03/09/2017 REASON FOR CONSULTATION: Fever of unknown source. HISTORY OF PRESENT ILLNESS: A 56-year-old has a history of coronary disease with recent bypass graft surgery by Dr. Storey, bipolar disorder and a prior episode of pulmonary embolism and breast cancer in remission following mastectomy, who was in her usual state of health until about 2 days before adm ission, when she noticed what she describes as diffuse burning sensation in the abdominal area associ ated with nausea, vomiting, general malaise, some cough, but no chest pain, some intermittent neck pa in. No dyspnea. She did have some dyspnea previously. She had been constipated, but no episodes of diarrhea, no genitourinary symptoms, no joint symptoms. She was brought to the emergency room where initial temperature was 102.9, pulse 118, respiratory rate 37, BP 130/80. Chest x-ray did not show any abnormalities. CT angio was negative for PE. Influenza screen negative. Initial labs with whit e cell count 8.5, hemoglobin 11, platelets 343 with 58% neutrophils. Chemistry with creatinine 0.84, sodium 134. Bilirubin 1.6. Transaminases normal, alkaline phosphatase 274, albumin 3.5. Urinalysi s with 0-3 wbc's. Microbiology thus far with 2 sets of blood cultures, no growth. Previous culture from the left thigh wound from breakdown of the saphenectomy donor site with Morganella morganii with a very broad susceptibility profile. A CT angio showed a small left pleural effusion, small pericar dial effusion, mediastinal lymphadenopathy and cardiomegaly and she also had a venogram done yesterda y with no evidence of DVT in lower extremity. Currently, Ms. Martin is feeling better. The abdomin al sensation has subsided. No headaches and remainder of 10-point review of systems is as above. PAST MEDICAL HISTORY: Hypertension, coronary artery disease, bypass graft surgery, dehiscence of the wounds and thigh and lower chest with evidence of only superficial involvement, hypothyroidism, hype rtension, bipolar disorder, history of breast cancer in remission after mastectomy. PAST SURGICAL HISTORY: As above, modified radical mastectomy, right side, . MEDICATIONS: Benztropine, Lipitor, BuSpar, [place], Zetia, levothyroxine, metoprolol, inhalers, Prolix in, aspirin, and Lasix. ALLERGIES: HYDROCODONE. FAMILY HISTORY: Noncontributory. SOCIAL HISTORY: Never a smoker. Lives with . PHYSICAL EXAMINATION: VITAL SIGNS: Patient has been afebrile since admission, blood pressure 120/67, pulse 98-105, respira tions 24, O2 sat 91%-94%. GENERAL: There is no distress. SKIN: She has the open wounds in the medial left thigh with negative pressure dressing and then the prior chest tube site in the lower sternal area with 100% granulation. Peripheral IV access. No Fol ey catheter. HEENT: Ocular movements are conjugate. Oral cavity moist. Numerous teeth in place with quite a bit of decay and gum disease. NECK: Supple, no jugular venous distention. LUNGS: With symmetric air entry with faint inspiratory crackles, left side. No wheezing. HEART: S1, S2, regular rate. No S3 or S4. ABDOMEN: Soft, not distended or tender. No ascites or bladder distention. EXTREMITIES: No joint inflammatory activity. Moves all extremities equally. NEUROLOGIC: Plantar responses are flexure. LABORATORY DATA: Labs have been reviewed above. ASSESSMENT: 1. Coronary artery disease with recent bypass graft surgery, some superficial postoperative skin inf ection at the wound site has been managed with wound care at this time. 2. New onset of nausea associated with diffuse abdominal pain, vomiting, and fever which seems to be improving. DISCUSSION: Differential diagnoses includes cholecystitis or choledocholithiasis, pancreatitis or in tra-abdominal inflammatory process of an alternate nature. We will evaluate with a CT abdomen and pe lvis with contrast or an abdominal ultrasound. Check amylase and lipase.
[2017-03-09] MEDS: Atorvastatin Calcium 40 MG TAB PO SCH (21:04)
[2017-03-10] MEDS: Piperacillin/Tazobactam 3.375 GM in Sodium Chloride 0.9% 100 ML IVPB SCH ×4 (02:05→19:00)
[2017-03-10] MEDS: Levothyroxine Sodium 125 MCG TAB PO SCH (05:47)
--- NOTE | 2017-03-10 08:44 | ULT ---
ABDOMINAL ULTRASOUND: DATE: 03/10/17. COMPARISON: None. HISTORY: Abdominal pain with nausea and vomiting. TECHNIQUE: Multiplanar, vaughn scale sonographic imaging of the abdomen obtained. FINDINGS: Pancreas is grossly unremarkable. The tail is slightly obscured by bowel gas. Visualized IVC and ao rta appear within normal limits. The distal abdominal aorta is completely obscured by bowel gas. Limited assessment of the hepatic parenchyma demonstrates no focal liver lesion or intrahepatic bilia ry dilatation. Partially imaged right-sided pleural effusion is present. No gallbladder wall thickening or pericholecystic fluid. CBD measures 4 mm, within normal limits. T he right kidney measures 11.7 cm. Detailed assessment of the right kidney is limited secondary to niyah wel gas. No hydronephrosis noted. The spleen measures 8.5 cm, within normal limits. The left kidney is only faintly visualized, thus poorly assessed, measuring approximately 10 cm in cr aniocaudal dimension. The popcorn candy maker reports a negative Sheriff's sign. IMPRESSION: Grossly unremarkable abdominal ultrasound. The study is limited secondary to bowel gas. POS: [facility]
[2017-03-10] MEDS: Furosemide 40 MG TAB PO SCH (10:58)
[2017-03-10] MEDS: Aspirin 325 mg Enteric Coated Tablet PO SCH (10:58)
[2017-03-10] MEDS: Potassium Chloride 20 MEQ TAB PO SCH (10:58)
[2017-03-10] MEDS: busPIRone HCl 10 MG TAB PO SCH ×2 (10:58→21:16)
[2017-03-10] MEDS: Ezetimibe 10 MG TAB PO SCH (10:59)
[2017-03-10] MEDS: Metoprolol Tartrate 50 MG TAB PO SCH ×2 (10:59→21:17)
[2017-03-10 13:23] VITALS: BMI 47.7
[2017-03-10] MEDS ORDERED: Clopidogrel Bisulfate 75 MG TAB ONE (14:51)
[2017-03-10] MEDS ORDERED: Bisacodyl 5 MG TAB PO SCH (19:30)
[2017-03-10] MEDS: Atorvastatin Calcium 40 MG TAB PO SCH (21:17)
[2017-03-11] MEDS: Piperacillin/Tazobactam 3.375 GM in Sodium Chloride 0.9% 100 ML IVPB SCH ×4 (01:18→18:47)
[2017-03-11] MEDS: Levothyroxine Sodium 125 MCG TAB PO SCH (06:07)
[2017-03-11] MEDS: Aspirin 325 mg Enteric Coated Tablet PO SCH (09:39)
[2017-03-11] MEDS: Furosemide 40 MG TAB PO SCH (09:39)
[2017-03-11] MEDS: Ezetimibe 10 MG TAB PO SCH (09:39)
[2017-03-11] MEDS: busPIRone HCl 10 MG TAB PO SCH ×2 (09:39→21:51)
[2017-03-11] MEDS: Potassium Chloride 20 MEQ TAB PO SCH (09:40)
[2017-03-11] MEDS: Metoprolol Tartrate 50 MG TAB PO SCH ×2 (09:40→21:52)
[2017-03-11] MEDS: Bisacodyl 5 MG TAB PO SCH (09:40)
[2017-03-11] MEDS ORDERED: Iopamidol 370 76% 100 ML VIAL ONE (11:49)
--- NOTE | 2017-03-11 15:29 | CT ---
CT ABDOMEN AND PELVIS WITH IV AND ORAL CONTRAST: History: Abdominal pain. Fever. Constipation. FINDINGS: Small amount of bilateral pleural fluid and bibasilar atelectasis are apparent. There is minimal free fluid within the abdomen. The liver, spleen, kidneys, adrenal glands, and pancreas have a normal CT appearance. Reactive appearing lymph nodes are present at the central mesentery and retroperitoneum. Urinary bladder is partially compressed by lobulated homogeneous fibroids arising from the uterus, me asuring up to 9.0 cm greatest diameter. There are degenerative changes of the lumbar spine. IMPRESSION: 1. No acute abnormalities of the abdomen are demonstrated to explain abdominal pain and fever. 2. Small bilateral pleural effusions. 3. Moderate fibroid involvement of the uterus. POS: [facility]
[2017-03-11] MEDS: Atorvastatin Calcium 40 MG TAB PO SCH (21:51)
[2017-03-12] MEDS: Levothyroxine Sodium 125 MCG TAB PO SCH (05:05)
[2017-03-12] MEDS: HYDROcodone/Acetaminophen 5/325 mg Tablet PO PRN ×3 (05:05→15:45)
[2017-03-12] MEDS: Potassium Chloride 20 MEQ TAB PO SCH (09:03)
[2017-03-12] MEDS: Ezetimibe 10 MG TAB PO SCH (09:03)
[2017-03-12] MEDS: Aspirin 325 mg Enteric Coated Tablet PO SCH (09:03)
[2017-03-12] MEDS: Metoprolol Tartrate 50 MG TAB PO SCH (09:03)
[2017-03-12] MEDS: Furosemide 40 MG TAB PO SCH (09:03)
[2017-03-12] MEDS: busPIRone HCl 10 MG TAB PO SCH (09:03)
[2017-03-12] MEDS: Bisacodyl 5 MG TAB PO SCH (09:03)
[2017-03-12 11:28] LABS: Troponin I 0.033 ng/mL (< 0.028)
--- NOTE | 2017-03-12 13:11 | EKG ---
Test Reason : Blood Pressure : / mmHG Vent. Rate : 066 BPM Atrial Rate : 066 BPM P-R Int : 150 ms QRS Dur : 094 ms QT Int : 444 ms P-R-T Axes : 048 020 052 degrees QTc Int : 465 ms Normal sinus rhythm Possible Left atrial enlargement Borderline ECG Confirmed by MICHAEL BALLESTEROS ([id number]) on 03/12/2017 1:11:11 PM Referred By: RAMBO Confirmed By:MICHAEL BALLESTEROS
[2017-03-12 14:08] LABS: Troponin I 0.028 ng/mL (< 0.028)
[2017-03-12 16:41] VITALS: BP 116/60; TEMP 97.1
--- NOTE | 2017-03-13 13:11 | DIS ---
DATE OF ADMISSION: 03/07/2017 DATE OF DISCHARGE: 03/12/2017 ADMITTING DIAGNOSES: 1. Fever, etiology not clear. 2. Nausea and vomiting. 3. Abdominal pain. 4. Metabolic encephalopathy. 5. Coronary artery disease, status post bypass. 6. Left thigh wound dehiscence, status post wound VAC. 7. Hypothyroidism. 8. Systolic heart failure by history. 9. Bipolar disorder. FINAL DIAGNOSES: 1. Fever of unknown origin. 2. Metabolic encephalopathy, improved. 3. Abdominal pain, nausea and vomiting, improved. 4. Left thigh wound dehiscence, status post wound VAC. 5. Hypothyroidism. 6. Bipolar disorder. 7. Coronary artery disease, status post coronary artery bypass grafting. BRIEF SUMMARY OF HOSPITAL COURSE: Ms. Martin is a 56-year-old -[place] African female admitted shahrzad use of fever. Patient states she has been having some nausea and abdominal discomfort. The patient recently had coronary artery bypass surgery. The patient's initial workup was done. There was no ev idence of any UTI or pneumonia. The patient had respiratory culture done and it came out negative. Influenza screen was also negative. A consultation was done with Dr. Hall. He felt the patient cam e with abdominal pain and nausea and he suggested CT of abdomen or ultrasound. Initially, ultrasound of the abdomen was done, no evidence of any cholecystitis or cholelithiasis. CT scan of the abdomen was done, it was also unremarkable, the patient's fever resolved the next day and she did not have a nymore fever. Her nausea and vomiting also resolved. Her abdominal pain improved. Her blood cultur es were negative. Her labs remained stable. So in view of improvement, the patient was discharged. At the time of discharge, she was stable. Her vital signs were stable. Her lungs were clear. Hear t sounds regular. Abdomen was soft, no distention. Bowel sounds present. DISCHARGE MEDICATIONS: Include Lipitor 80 mg daily, albuterol inhaler 2 puffs q.i.d. p.r.n., BuSpar 10 mg b.i.d., aspirin 325 mg daily, metoprolol 50 b.i.d., KCl 20 mEq daily, levothyroxine 125 mcg marsha ly, furosemide 40 mg daily, [place] p.r.n., Zetia 10 mg daily and Cogentin 2 mg b.i.d. FOLLOWUP: The patient will come for followup in 2 weeks.
== END 2017-03-12 17:43 | disposition home health service (06) | DRG 864 ==
LOC: ERS 16:59 → 2SE 22:58
PROVIDERS: ADMIT Internal Medicine; ATTEND Internal Medicine
DX: R50.9 Fever, unspecified (principal); G93.41 Metabolic encephalopathy; T81.31XA Disruption of external operation (surgical) wound, not elsewhere classified, initial encounter; I50.20 Unspecified systolic (congestive) heart failure; I11.0 Hypertensive heart disease with heart failure; T81.4XXA Infection following a procedure, initial encounter; E03.9 Hypothyroidism, unspecified; B99.8 Other infectious disease; I25.10 Atherosclerotic heart disease of native coronary artery without angina pectoris; I25.2 Old myocardial infarction; Z85.3 Personal history of malignant neoplasm of breast; Z95.1 Presence of aortocoronary bypass graft; R10.9 Unspecified abdominal pain; R11.2 Nausea with vomiting, unspecified; F31.9 Bipolar disorder, unspecified; Z86.711 Personal history of pulmonary embolism; R09.02 Hypoxemia; Y83.8 Other surgical procedures as the cause of abnormal reaction of the patient, or of later complication, without mention of misadventure at the time of the procedure
CPT/HCPCS: 36415; 71010; 71275; 74177; 76700; 80053; 81003; 81015; 82150; 82553; 83605; 83690; 84484; 85025; 87040; 87633; 93005; 93010; 93970; 96360; 96361; A4216; J0456; J0696; J2405; J2543; J7050

== ENCOUNTER 2017-04-21 03:08 | Emergency (ER) | payer MEDICARE, MEDICAID ==
[2017-04-21 04:32] LABS: #Eosinphils 0.1 thou/uL (0.0-0.7); #Lymphocytes 1.5 thou/uL (1.20-3.40); #Monocytes 0.4 thou/uL (0.11-0.59); #Neutrophils 1.5 thou/uL (1.40-6.50); %Basophils 1.1 % (0.0-1.0); %Eosinophils 2.1 % (0.0-10.0); %Monocytes 11.7 % (0.0-10.0); Hemoglobin 11.4 g/dL (12.0-16.0); Mean Corpuscular HGB CONC 31.9 g/dL (32.0-36.0); Mean Corpuscular Hemoglobin 23.9 pg (27.0-31.0); Mean Corpuscular Volume 74.9 fl (81.0-99.0); Mean Platelet Volume 8.6 fL (7.4-10.4); Platelet Count 244 thou/uL (130-400); RBC Distribution Width 15.5 % (11.5-14.5); Red Blood Cell (RBC) Count 4.77 mill/uL (4.20-5.40); White Blood Cell (WBC) Count 3.5 thou/uL (4.8-10.8)
[2017-04-21 04:50] LABS: ALT (SGPT) 14 U/L (8-55); AST (SGOT) 19 U/L (5-34); Albumin 3.8 g/dL (3.5-5.0); Alkaline Phosphatase 171 U/L (40-150); Anion Gap 12 mmol/L (10-20); BUN (Urea Nitrogen) 8 mg/dL (9.8-20.1); Bilirubin, Total 0.3 mg/dL (0.2-1.2); CK (CPK) 70 U/L (29-168); Calc. Creatinine Clearance 0 mL/min (70-130); Calcium 9.6 mg/dL (7.8-10.44); Carbon Dioxide 24 mmol/L (22-29); Chloride 103 mmol/L (98-107); Estimated GFR-MDRD 89; Globulin 3.8 g/dL (2.4-3.5); Glucose 102 mg/dL (70-105); Potassium 3.8 mmol/L (3.5-5.1); Protein, Total 7.6 g/dL (6.0-8.3); Sodium 135 mmol/L (136-145)
[2017-04-21 05:01] LABS: CKMB 0.7 ng/mL (0-6.6); Troponin I 0.027 ng/mL (< 0.028)
--- NOTE | 2017-04-21 07:56 | RAD ---
PORTABLE CHEST 1 VIEW: DATE: 04/21/17. TIME: 3:20 a.m. HISTORY: Dyspnea. FINDINGS: Comparison is made with the exam of 03/07/17. Changes of median sternotomy are again seen. The heart size is borderline. There is continued eleva tion of the right hemidiaphragm. No confluent areas of consolidation, pneumothorax, harry pulmonary edema, or pleural effusions are seen. Evidence of old granulomatous disease is again noted. IMPRESSION: No acute process. POS: [facility]
--- NOTE | 2017-04-26 13:47 | EKG ---
Test Reason : Blood Pressure : / mmHG Vent. Rate : 091 BPM Atrial Rate : 091 BPM P-R Int : 146 ms QRS Dur : 088 ms QT Int : 342 ms P-R-T Axes : 066 033 072 degrees QTc Int : 420 ms Normal sinus rhythm Possible Left atrial enlargement Borderline ECG Confirmed by WALT MACARIO ([id number]), art editor ANTHONY ZUÑIGA ([id number]) on 04/26/2017 1:46:51 PM Referred By: CHALINO VYAS Confirmed By:WALT MACARIO
== END 2017-04-21 05:33 | disposition home or self-care (01) ==
LOC: ERS 03:08
DX: J06.9 Acute upper respiratory infection, unspecified (principal); E03.9 Hypothyroidism, unspecified; E11.9 Type 2 diabetes mellitus without complications; E78.5 Hyperlipidemia, unspecified; I10 Essential (primary) hypertension; F41.9 Anxiety disorder, unspecified; F31.9 Bipolar disorder, unspecified; F25.9 Schizoaffective disorder, unspecified; Z87.891 Personal history of nicotine dependence; Z79.899 Other long term (current) drug therapy
CPT/HCPCS: 71045; 80053; 82553; 83880; 84484; 85025; 93005

== ENCOUNTER 2017-04-27 19:50 | Inpatient (IN) | payer MEDICARE, MEDICAID ==
[2017-04-27] MEDS ORDERED: Ondansetron ODT 4 MG TAB ONE (20:16)
[2017-04-27 20:27] LABS: Bilirubin Negative (Negative); Blood, Urine Negative (Negative); Glucose, Urine (Dipstick) Negative (Negative); Leukocyte Negative (Negative); Nitrite Negative (Negative); Protein, Urine (Dipstick) Negative (Neg-Trace); Urobilinogen 0.2 mg/dL (0.2-1.0)
[2017-04-27 20:29] LABS: Clarity Clear (Clear); Specific Gravity, Urine 1.002 (1.002-1.036)
[2017-04-27 20:42] LABS: Hemoglobin 12.3 g/dL (12.0-16.0); Mean Corpuscular HGB CONC 32.2 g/dL (32.0-36.0); Mean Corpuscular Hemoglobin 24.1 pg (27.0-31.0); Mean Corpuscular Volume 74.9 fl (81.0-99.0); Mean Platelet Volume 8.6 fL (7.4-10.4); Platelet Count 295 thou/uL (130-400); RBC Distribution Width 15.6 % (11.5-14.5); White Blood Cell (WBC) Count 6.1 thou/uL (4.8-10.8)
[2017-04-27 21:03] LABS: ALT (SGPT) 12 U/L (8-55); AST (SGOT) 19 U/L (5-34); Albumin 3.8 g/dL (3.5-5.0); Alkaline Phosphatase 160 U/L (40-150); Anion Gap 12 mmol/L (10-20); BUN (Urea Nitrogen) 7 mg/dL (9.8-20.1); Bilirubin, Total 0.3 mg/dL (0.2-1.2); Calc. Creatinine Clearance 0 mL/min (70-130); Calcium 9.9 mg/dL (7.8-10.44); Carbon Dioxide 24 mmol/L (22-29); Chloride 104 mmol/L (98-107); Estimated GFR-MDRD 90; Globulin 3.9 g/dL (2.4-3.5); Glucose 85 mg/dL (70-105); Lipase 41 U/L (8-78); Potassium 3.4 mmol/L (3.5-5.1); Protein, Total 7.7 g/dL (6.0-8.3); Sodium 137 mmol/L (136-145)
[2017-04-27 21:04] LABS: CKMB 7.1 ng/mL (0-6.6); Troponin I 0.992 ng/mL (< 0.028)
[2017-04-27 21:08] LABS: Eosinophils 1 % (0-10); Lymphocytes 52 % (21-51); MDiff Complete? YES; Monocytes 6 % (0-10); Neutrophil 41 % (42-75)
[2017-04-27] MEDS ORDERED: Enoxaparin Sodium 100 MG/ML SYRINGE ONE (21:30)
[2017-04-27] MEDS ORDERED: Ondansetron HCl/PF 4 MG/2 ML Vial IVP PRN (22:59)
[2017-04-27] MEDS ORDERED: Ondansetron ODT 4 MG TAB SL PRN (22:59)
[2017-04-27 23:45] LABS: Troponin I 1.601 ng/mL (< 0.028)
[2017-04-28 03:03] LABS: Troponin I 2.103 ng/mL (< 0.028)
[2017-04-28] MEDS ORDERED: PROVENTIL INHALER 6.7 G (200 INHALATIONS) INH PRN (11:25)
--- NOTE | 2017-04-28 12:29 | RAD ---
PORTABLE AP CHEST X-RAY: 04/28/2017 HISTORY: Chest pain. COMPARISON: 04/21/2017 FINDINGS: Post-surgical changes related to median sternotomy are again noted. Cardiac silhouette is magnified by projection. Pulmonary vasculature is within normal limits. There is evidence of prior granulomat ous disease. Elevation of the right hemidiaphragm is again present. Lungs are otherwise clear. Lian gical clips overlie the right breast and right axillary region. No other interval change. IMPRESSION: No acute cardiopulmonary process. POS: [facility]
[2017-04-28] MEDS: busPIRone HCl 10 MG TAB PO SCH (19:51)
[2017-04-28] MEDS: Atorvastatin Calcium 40 MG TAB PO SCH (19:51)
[2017-04-28] MEDS: Benztropine 1 MG TAB PO SCH (19:51)
[2017-04-28] MEDS ORDERED: Sodium Chloride 0.9% 1,000 ML IV SCH (22:00)
[2017-04-28] MEDS ORDERED: Communication Order-Pharmacy FS SCH (22:00)
--- NOTE | 2017-04-29 04:33 | CON ---
DATE OF CONSULTATION: 04/28/2017 HISTORY OF PRESENT ILLNESS: Neel Martin is a 56-year-old black female that I have followed for many years, although she is somewhat noncompliant with office followups. In 05/2008, she did have a cardiac catheterization. She had a spasm in the mid LAD to 100% which was relieved with intracoronary nitroglycerin. There was a 20-40%, minimal disease in other areas. She was placed on Cardizem and long-acting nitrates. In 12/2016, she was admitted with 2-3 days with chest pain, had a non-STEMI. She underwent cardiac catheterization and had 60% left main, 20% proximal LAD, 70% diagonal, 80% large ramus marginalis lesion. Circumflex was small with an 80% distal stenosis. The right coronary artery was totally occluded in its mid portion with bridging collaterals and the distal vessel filled retrograde from the left. She then underwent CABG x3 with JARVIS to diagonal, saphenous vein graft to the LAD and saphenous vein graft to the ramus. The proximal ramus graft anastomosis was performed to the coronel of the LAD vein graft. There was nothing suitable graft to the right coronary artery. Her course postsurgery has been complicated by episodes of admission for infection requiring debridement of her leg wound and heart failure. She has not returned to my office for followup since bypass surgery. She now is admitted with shortness of breath and chest pain associated with coughing. She states she has been taking over the counter diet, medications. She has been found to have positive cardiac enzymes. PAST MEDICAL HISTORY: Coronary artery disease, history of coronary artery spasm , hypertension, hypercholesterolemia, obesity. OPERATIONS: CABG, , and mastectomy. MEDICATIONS: When she was last discharged include albuterol, ProAir, atorvastatin 80 daily (I do not see this in her medicine bag), Cogentin 2 mg b.i.d., buspirone 10 mg b.i.d., diltiazem 120 daily, Zetia 10 daily, furosemide 40 daily, levothyroxine 125 mcg daily, potassium chloride 20 mEq q.a.m. ALLERGIES: HYDROCODONE. SOCIAL HISTORY: She smoked until the time of bypass surgery. She states she does not smoke now. She does not drink. REVIEW OF SYSTEMS: Ten point review of systems unremarkable. PHYSICAL EXAMINATION: VITAL SIGNS: 123/76, pulse of 100. HEENT: PERRL. NECK: Supple. CHEST: Clear. CARDIAC: S1 and S2 are normal, without any S3, S4 or murmurs. ABDOMEN: Normal bowel sounds, without tenderness or organomegaly. EXTREMITIES: Revealed trace pretibial edema. NEUROLOGIC: Grossly intact. LABORATORY DATA: EKG revealed normal sinus rhythm with left atrial enlargement. Hemoglobin 12.3, hematocrit 38.2, white count 6100, platelets 295, 000. Sodium 137, potassium 3.4, chloride 104, carbon dioxide 24, BUN 7, creatinine 0.80. CK-MB 7.1, troponin I is up to 2.103. IMPRESSION: 1. Non-ST elevation myocardial infarction. 2. Status post coronary artery bypass graft x3. The distal circumflex was not bypassed. 3. Taking over the counter diet medicines. 3. Hyperlipidemia. 4. Hypertension. 5. Hypothyroidism. 6. Obesity. 7. Former smoker. PLAN: It was recommended Ms. Martin undergo cardiac catheterization with her non-STEMI. Risks of this were discussed including , myocardial infarction , dye reaction, vascular injury, CVA, transfusion, limb loss, renal loss, etc. Also, risk of intervention with PTCA stent placement were discussed including , myocardial infarction, emergent CABG, restenosis, stent thrombosis, vessel perforation, etc. I continued to be concerned about her compliance especially with followups in the office and I will only placed a bare metal stent. She agrees to proceed. MARCELINO
[2017-04-29] MEDS: Levothyroxine Sodium 125 MCG TAB PO SCH (05:52)
[2017-04-29] MEDS: Benztropine 1 MG TAB PO SCH ×2 (05:53→20:28)
[2017-04-29] MEDS: busPIRone HCl 10 MG TAB PO SCH ×2 (05:53→20:29)
[2017-04-29] MEDS: Sodium Chloride 0.9% 1,000 ML IV SCH ×2 (05:53→17:29)
[2017-04-29] MEDS: Ezetimibe 10 MG TAB PO SCH (05:54)
[2017-04-29 06:21] LABS: Cardiac Risk 4.6 (Less than 4.5)
--- NOTE | 2017-04-29 06:33 | HP ---
DATE OF ADMISSION: 04/27/2017 CHIEF COMPLAINT: Chest pain and epigastric pain. HISTORY OF PRESENT ILLNESS: Ms. Martin is a 56-year-old -Malaysian female with past medical h istory of coronary artery disease, status post coronary artery bypass graft, hypothyroidism, systolic heart failure who developed chest pain that is burning in nature in the epigastrium and in the chest associated with some nausea and vomiting. The patient had a recent [place], recent CABG done. The patie nt states she quit smoking that time, but started smoking again. She states she smoked a whole pack yesterday. She also states she had nausea and vomited once, but no shortness of breath, no headache, no dizziness. The patient decided to come to the hospital because of the chest pain. PAST MEDICAL HISTORY: 1. Coronary artery disease, status post coronary artery bypass graft. 2. Hypertension. 3. Hypothyroidism. 4. Systolic heart failure. 5. Bipolar disorder. 6. Hyperlipidemia. 7. History of pulmonary embolism, not on Coumadin because patient is noncompliant. 8. History of breast cancer, status post mastectomy, right breast. PAST SURGICAL HISTORY: 1. Status post CABG. 2. Status post . 3. Status post modified radical mastectomy, right. CURRENT MEDICATIONS: The patient is on albuterol inhaler q.i.d. p.r.n., Lipitor 80 mg daily, benztro pine 2 mg b.i.d., BuSpar 10 mg b.i.d., diltiazem 120 mg daily, Zetia 10 mg daily, Lasix 40 mg daily, levothyroxine 125 mcg daily, KCl 20 mEq daily, aspirin 325 mg daily, metoprolol 50 b.i.d. ALLERGIES: HYDROCODONE. FAMILY HISTORY: Nothing significant. SOCIAL HISTORY: Patient lives with family. No history of alcohol. Smokes 1 pack a day. REVIEW OF SYSTEMS: Cardiovascular: Has chest pain, no shortness of breath. Respiratory: Has no co ugh or fever. Gastrointestinal: No nausea or vomiting. Central nervous system: No headache, no di zziness. PHYSICAL EXAMINATION: GENERAL: The patient is alert, awake, oriented x3. VITAL SIGNS: Temperature 98, pulse 91, respirations 20, blood pressure 103/60. HEENT: Head is normocephalic, atraumatic. Pupils are equal and reactive. Nasopharynx is pink, mois t. NECK: Supple. No JVD. LUNGS: Bilateral air entry, no rales, no rhonchi. CARDIAC: S1, S2 regular. ABDOMEN: Soft, no distention, no tenderness. Normal bowel sounds. RECTAL: Deferred. NEUROLOGIC: No focal neurological deficits. LABORATORY AND X-RAY FINDINGS: CBC shows WBC 6, hemoglobin 12, hematocrit 38, platelets 295. Metabo lic panel: Sodium 137, potassium 3.4, chloride 104, CO2 24, urea nitrogen 7, creatinine 0.8, glucose 85. CK-MB 7, troponin I 0.992. Urinalysis negative. Chest x-ray negative. EKG shows normal sinus rhythm, no acute ST-T wave changes seen. ASSESSMENT: 1. Chest pain. 2. Possible non-ST elevation myocardial infarction. 3. Coronary artery disease, status post coronary artery bypass graft. 4. Hypertension. 5. Hypothyroidism. 6. Systolic heart failure. 7. Schizophrenia. 8. Hyperlipidemia. 9. Tobacco abuse. PLAN: 1. Vital signs q.4 hours. 2. Activity: As tolerated. 3. Allergies: HYDROCODONE. 4. Hep-Lock. 5. Troponin q.8 h. x2. 6. Continue her home medication. 7. Aspirin daily. 8. Cardiology consult.
[2017-04-29] MEDS ORDERED: CHROMIUM PICOLINATE 200 MCG PO SCH (09:00)
[2017-04-29] MEDS ORDERED: Heparin 10,000 UNITS/1 ML VIAL ONE (12:10)
[2017-04-29] MEDS ORDERED: Iopamidol 370 76% 100 ML VIAL ONE (12:28)
[2017-04-29] MEDS ORDERED: Iopamidol 370 76% 50 ML VIAL FS ONE (12:28)
[2017-04-29] MEDS ORDERED: Midazolam HCl 2 mg/2 ml Vial ONE (13:40)
[2017-04-29] MEDS ORDERED: Fentanyl 100 MCG/2 ML VIAL ONE (13:41)
[2017-04-29] MEDS ORDERED: Clopidogrel Bisulfate 300 MG TAB ONE (14:09)
[2017-04-29] MEDS ORDERED: Bivalirudin 250 MG VIAL ONE (14:09)
[2017-04-29] MEDS ORDERED: Nitroglycerin 0.4 MG TAB 1 EACH SL PRN (14:55)
[2017-04-29] MEDS ORDERED: Sodium Chloride 0.9% 1,000 ML IV SCH (15:00)
[2017-04-29] MEDS ORDERED: Morphine 5 MG/ML SYRINGE SLOW IVP PRN (15:07)
[2017-04-29] MEDS: Furosemide 40 MG TAB PO SCH (15:16)
[2017-04-29] MEDS: Potassium Chloride 20 MEQ TAB PO SCH (15:16)
[2017-04-29] MEDS: Atorvastatin Calcium 40 MG TAB PO SCH (20:28)
--- NOTE | 2017-04-29 20:58 | EKG ---
Test Reason : POST PTCA/STENT Blood Pressure : / mmHG Vent. Rate : 075 BPM Atrial Rate : 075 BPM P-R Int : 162 ms QRS Dur : 096 ms QT Int : 410 ms P-R-T Axes : 060 033 066 degrees QTc Int : 457 ms Normal sinus rhythm Normal ECG When compared with ECG of 27-APR-2017 20:01, (Unconfirmed) Nonspecific T wave abnormality no longer evident in Lateral leads Confirmed by VIMAL SCHWARTZ ([id number]) on 04/29/2017 8:57:56 PM Referred By: JOSEPH Confirmed By:VIMAL SCHWARTZ
--- NOTE | 2017-04-29 22:39 | CCL ---
PROCEDURE: Left heart catheterization, selective coronary arteriography, left ventriculography, bypass graft angiography, LMA injection, bare metal stent placement in the ramus graft. INDICATION: Non-STEMI. Patient was brought to the cardiac medical laboratory scientist and the right femoral artery was prepped and draped. The patient was given Versed 1 mg and fentanyl 25 mg IV. A 6 [place] sheath was placed into the right femoral artery and heparin 3000 units given. A 6 [place] angulated pigtail was inserted and pressure was obtained. Left ventriculogram was performed using 30 mL of contrast at 12 mL per second in an AMBER 30 degree projection. Pressures were obtained and the pigtail was removed. A 6 [place] Miley left 4 followed by 6 [place] Miley right 4 was used for coronary arteriography. The right 4 was also used to opacity the bypass grafts as well as the JARVIS. Angiomax bolus and drip were started. The patient was given Plavix 600 mg p.o. A 6 [place] right 4 guide catheter was inserted. A filter wire was inserted distal to the ramus graft stenosis. This was then deployed. Rebel 3.0 x 28 mm stent was then positioned and deployed in the proximal ramus graft. Final result was excellent. The filter wire was then retrieved. Sheaths were sutured in place. The patient was transferred to the PCU. RESULTS OF PRESSURES: Aorta 138/71, mean 92. Left ventricle 155/13. LEFT VENTRICULOGRAM: There was mild inferobasal hypokinesis with ejection fraction of 50-55%. CORONARY ARTERIOGRAPHY: 1. The left main was normal. 2. The LAD had 50% proximal stenosis, a 60% mid stenosis. The diagonal had a 70% stenosis. 3. The circumflex had a 20% proximal stenosis and 80% stenosis in the distal vessel which was less than 1 mm in diameter. 4. The ramus was totally occluded. 5. The right coronary artery was totally occluded in its mid portion with bridging collaterals as well as retrograde filling from the left. BYPASS GRAFTS: 1. The JARVIS to the LAD was patent. The JARVIS was a small diameter. 2. The LAD vein graft was patent. 3. The ramus graft which was piggybacked onto the LAD graft an 80% lesion at the proximal anastomosis. INTERVENTION RESULTS: The initial ramus lesion with 80%. Final lesion was 0%. IMPRESSION: 1. Three-vessel coronary artery disease. 2. Three out of three bypass grafts patent. 3. Mild left ventricular dysfunction. 4 Successful stent placement in the ramus graft. MARCELINO
[2017-04-30] MEDS: Sodium Chloride 0.9% 1,000 ML IV SCH ×2 (04:43→12:47)
[2017-04-30 05:43] LABS: #Basophils 0.1 thou/uL (0.0-0.2); #Eosinphils 0.1 thou/uL (0.0-0.7); #Lymphocytes 2.1 thou/uL (1.20-3.40); #Monocytes 0.6 thou/uL (0.11-0.59); #Neutrophils 2.6 thou/uL (1.40-6.50); %Basophils 1.6 % (0.0-1.0); %Eosinophils 1.7 % (0.0-10.0); %Lymphocytes 37.4 % (21.0-51.0); %Monocytes 11.2 % (0.0-10.0); Hemoglobin 11.1 g/dL (12.0-16.0); Mean Corpuscular HGB CONC 32.4 g/dL (32.0-36.0); Mean Corpuscular Volume 74.1 fl (81.0-99.0); Platelet Count 337 thou/uL (130-400); Red Blood Cell (RBC) Count 4.61 mill/uL (4.20-5.40); White Blood Cell (WBC) Count 5.5 thou/uL (4.8-10.8)
[2017-04-30 06:02] LABS: ALT (SGPT) 8 U/L (8-55); AST (SGOT) 13 U/L (5-34); Albumin 3.4 g/dL (3.5-5.0); Alkaline Phosphatase 132 U/L (40-150); Anion Gap 10 mmol/L (10-20); BUN (Urea Nitrogen) 9 mg/dL (9.8-20.1); Bilirubin, Total 0.5 mg/dL (0.2-1.2); Calc. Creatinine Clearance 165 mL/min (70-130); Calcium 9.5 mg/dL (7.8-10.44); Carbon Dioxide 25 mmol/L (22-29); Chloride 110 mmol/L (98-107); Estimated GFR-MDRD Greater than 90; Globulin 3.5 g/dL (2.4-3.5); Glucose 102 mg/dL (70-105); Protein, Total 6.9 g/dL (6.0-8.3); Sodium 141 mmol/L (136-145)
[2017-04-30] MEDS: Levothyroxine Sodium 125 MCG TAB PO SCH (06:41)
[2017-04-30] MEDS ORDERED: Clopidogrel Bisulfate 75 MG TAB PO SCH (09:00)
[2017-04-30] MEDS: Potassium Chloride 20 MEQ TAB PO SCH (09:29)
[2017-04-30] MEDS: Ezetimibe 10 MG TAB PO SCH (09:30)
[2017-04-30] MEDS: busPIRone HCl 10 MG TAB PO SCH (09:30)
[2017-04-30] MEDS: Benztropine 1 MG TAB PO SCH (09:30)
[2017-04-30] MEDS: Furosemide 40 MG TAB PO SCH (09:30)
[2017-04-30 19:42] VITALS: BP 127/63; TEMP 97.4
--- NOTE | 2017-04-30 21:13 | EKG ---
Test Reason : Blood Pressure : / mmHG Vent. Rate : 087 BPM Atrial Rate : 087 BPM P-R Int : 156 ms QRS Dur : 090 ms QT Int : 402 ms P-R-T Axes : 057 028 080 degrees QTc Int : 483 ms Normal sinus rhythm Prolonged QT Borderline ECG When compared with ECG of 29-APR-2017 15:23, No significant change was found Confirmed by VIMAL SCHWARTZ ([id number]) on 04/30/2017 9:12:42 PM Referred By: JOSEPH Confirmed By:VIMAL SCHWARTZ
--- NOTE | 2017-05-01 11:57 | DIS ---
DATE OF ADMISSION: 04/28/2017 DATE OF DISCHARGE: 04/30/2017 ADMITTING DIAGNOSES: 1. Chest pain. 2. Possible non-ST elevation myocardial infarction. 3. Coronary artery disease, status post coronary artery bypass graft. 4. Hypertension. 5. Hypothyroidism. 6. History of systolic heart failure. 7. Schizophrenia. FINAL DIAGNOSES: 1. Non-ST elevation myocardial infarction. 2. Status post stent placement in the ramus graft. 3. Coronary artery disease, status post coronary artery bypass graft. 4. Hypertension. 5. Hypothyroidism. 6. History of systolic heart failure. 7. Schizophrenia. BRIEF SUMMARY OF HOSPITAL COURSE: Ms. Martin is a 56-year-old -[place] female with past med ica history of coronary artery disease, status post recent CABG, came because of chest pain. The pa pattint has been restarted smoking. She was told to quit smoking. The patient was found to have eleva fredy troponin and suggestive of non-ST elevation [place]. Cardiology consult was done. The patient was se en by Dr. Aquino. IMPRESSION: The patient has non-ST elevation myocardial infarction and suggested a cardiac catheteri zation again. The patient underwent coronary angiogram and Dr. Aquino placed a stent in the ramus graft. After the stent placement, the patient did very well. She did not have any more chest pain, no shortness of breath. In view of improvement, the patient was discharged. At the time of discharg e, she was stable. Her vital signs were stable. Lungs clear. Heart sounds regular. Abdomen soft, nontender. Bowel sounds present. DISCHARGE MEDICATIONS: Include Lipitor 80 mg daily, ProAir inhaler 2 puffs q.i.d. p.r.n., BuSpar 10 mg b.i.d., KCl 20 mEq daily, levothyroxine 125 mcg daily, Lasix 40 mg daily, Zetia 10 mg daily, Cogen tin 2 mg b.i.d., diltiazem 120 daily, Plavix 75 mg daily, aspirin 81 b.i.d., metoprolol 25 daily. FOLLOWUP: The patient will come for followup in 2 weeks.
--- NOTE | 2017-05-31 15:02 | EKG ---
Test Reason : CP Blood Pressure : / mmHG Vent. Rate : 096 BPM Atrial Rate : 096 BPM P-R Int : 150 ms QRS Dur : 086 ms QT Int : 368 ms P-R-T Axes : 055 031 084 degrees QTc Int : 464 ms Normal sinus rhythm Possible Left atrial enlargement Borderline ECG Confirmed by SCOTT ROCHA ([id number]), metropolitan editor WILLIAM SALAMANCA ([id number]) on 05/31/2017 3:02:22 PM Referred By: Confirmed By:SCOTT ROCHA
== END 2017-04-30 20:32 | disposition home or self-care (01) | DRG 249 ==
LOC: ERS 19:50 → 2SW 21:00 → OBSVTOIN 04-28 10:37 → 2NO 04-29 19:54
PROVIDERS: ADMIT Internal Medicine; ATTEND Internal Medicine
PROC: 02703DZ Dilation of Coronary Artery, One Artery with Intraluminal Device, Percutaneous Approach (ICD-10-PCS; principal; 2017-04-29)
PROC: 4A023N7 Measurement of Cardiac Sampling and Pressure, Left Heart, Percutaneous Approach (ICD-10-PCS; 2017-04-29)
PROC: B2111ZZ Fluoroscopy of Multiple Coronary Arteries using Low Osmolar Contrast (ICD-10-PCS; 2017-04-29)
PROC: B2151ZZ Fluoroscopy of Left Heart using Low Osmolar Contrast (ICD-10-PCS; 2017-04-29)
DX: I21.4 Non-ST elevation (NSTEMI) myocardial infarction (principal); I11.0 Hypertensive heart disease with heart failure; I50.22 Chronic systolic (congestive) heart failure; F20.9 Schizophrenia, unspecified; Z95.1 Presence of aortocoronary bypass graft; E03.9 Hypothyroidism, unspecified; I25.10 Atherosclerotic heart disease of native coronary artery without angina pectoris; Z86.711 Personal history of pulmonary embolism; E78.5 Hyperlipidemia, unspecified; Z85.3 Personal history of malignant neoplasm of breast; F17.210 Nicotine dependence, cigarettes, uncomplicated; F31.9 Bipolar disorder, unspecified; E66.9 Obesity, unspecified
CPT/HCPCS: 36415; 71045; 80053; 80061; 81003; 82553; 83690; 84484; 85025; 85347; 92928; 93005; 93010; 93459; 96372; 99152; 99153; C1769; C1876; C1887; J0583; J1644; J1650; J2250; J2270; J3010; Q0162

== ENCOUNTER 2017-05-29 21:39 | Observation (INO) | payer MEDICARE, MEDICAID ==
--- NOTE | 2017-05-29 22:18 | RAD ---
CHEST ONE VIEW 05/29/17 HISTORY: Chest pain. COMPARISON: Chest radiograph 04/28/17. FINDINGS: The lungs are clear. No pneumothorax or effusion. The cardiac silhouette and mediastinal contours are similar. Prior cardiac surgery. No acute osseous abnormality. IMPRESSION: No acute intrathoracic abnormality or significant change. POS: [facility]
[2017-05-29 22:22] LABS: #Basophils 0.1 thou/uL (0.0-0.2); #Eosinphils 0.1 thou/uL (0.0-0.7); #Lymphocytes 2.4 thou/uL (1.20-3.40); #Monocytes 0.4 thou/uL (0.11-0.59); #Neutrophils 2.1 thou/uL (1.40-6.50); %Basophils 1.2 % (0.0-1.0); %Eosinophils 1.8 % (0.0-10.0); %Lymphocytes 47.8 % (21.0-51.0); %Monocytes 7.5 % (0.0-10.0); %Neutrophils 41.7 % (42.0-75.0); Hemoglobin 12.3 g/dL (12.0-16.0); Mean Corpuscular HGB CONC 32.9 g/dL (32.0-36.0); Mean Corpuscular Volume 73.1 fl (81.0-99.0); Mean Platelet Volume 8.6 fL (7.4-10.4); Platelet Count 314 thou/uL (130-400); RBC Distribution Width 17.2 % (11.5-14.5); Red Blood Cell (RBC) Count 5.14 mill/uL (4.20-5.40); White Blood Cell (WBC) Count 5.1 thou/uL (4.8-10.8)
[2017-05-29 22:43] LABS: ALT (SGPT) 15 U/L (8-55); AST (SGOT) 17 U/L (5-34); Albumin 3.7 g/dL (3.5-5.0); Alkaline Phosphatase 201 U/L (40-150); Anion Gap 13 mmol/L (10-20); BUN (Urea Nitrogen) 11 mg/dL (9.8-20.1); Bilirubin, Total 0.3 mg/dL (0.2-1.2); Calc. Creatinine Clearance 0 mL/min (70-130); Calcium 9.4 mg/dL (7.8-10.44); Carbon Dioxide 27 mmol/L (22-29); Chloride 103 mmol/L (98-107); Estimated GFR-MDRD 85; Globulin 3.7 g/dL (2.4-3.5); Glucose 87 mg/dL (70-105); Potassium 3.9 mmol/L (3.5-5.1); Protein, Total 7.4 g/dL (6.0-8.3); Sodium 139 mmol/L (136-145)
[2017-05-29 22:48] LABS: CKMB 0.9 ng/mL (0-6.6); Troponin I 0.027 ng/mL (< 0.028)
[2017-05-30] MEDS ORDERED: Acetaminophen 325 MG TAB PO PRN (01:03)
[2017-05-30] MEDS ORDERED: Ondansetron HCl/PF 4 MG/2 ML Vial IVP PRN (01:03)
[2017-05-30] MEDS ORDERED: Ondansetron ODT 4 MG TAB SL PRN (01:03)
[2017-05-30 02:21] LABS: Troponin I 0.043 ng/mL (< 0.028)
[2017-05-30 05:41] LABS: Troponin I 0.033 ng/mL (< 0.028)
[2017-05-30] MEDS ORDERED: PROVENTIL INHALER 6.7 G (200 INHALATIONS) INH PRN (10:37)
[2017-05-30] MEDS ORDERED: Potassium Chloride 20 MEQ TAB PO SCH (10:45)
[2017-05-30] MEDS ORDERED: busPIRone HCl 10 MG TAB PO SCH (10:45)
[2017-05-30] MEDS ORDERED: Ezetimibe 10 MG TAB PO SCH (10:45)
[2017-05-30] MEDS ORDERED: Levothyroxine Sodium 125 MCG TAB PO SCH (10:45)
[2017-05-30] MEDS ORDERED: Furosemide 40 MG TAB PO SCH (10:45)
[2017-05-30] MEDS ORDERED: Benztropine 1 MG TAB PO SCH (10:45)
[2017-05-30] MEDS ORDERED: Gabapentin 300 MG CAP PO SCH (10:45)
[2017-05-30] MEDS ORDERED: Clopidogrel Bisulfate 75 MG TAB PO SCH (10:45)
--- NOTE | 2017-05-30 18:35 | CON ---
DATE OF CONSULTATION: 05/30/2017 REASON FOR CONSULTATION: Chest pain. Dr. Munir Aquino is the primary damage assessor. HISTORY OF PRESENT ILLNESS: Ms. Martin is a 56-year-old woman, who recently underwent bypass surger y. She underwent coronary angiography shortly thereafter and was found to have patent grafts. She u nderwent stent placement to the intermediate ramus branch. She recently presented with left arm numbness and left chest numbness. No numbness to her lower extr emity or to her face. She states it lasted 3-5 minutes. She became concerned and proceeded to the e mergency room. She was given aspirin. PAST MEDICAL HISTORY: CAD, hypertension, hyperlipidemia, obesity. PAST SURGICAL HISTORY: , mastectomy, and CABG. MEDICATIONS: Include atorvastatin, buspirone, Cogentin, levothyroxine, Zetia, diltiazem, and albuter ol. ALLERGIES: HYDROCODONE. SOCIAL HISTORY: Continues to smoke. REVIEW OF SYSTEMS: Ten-point review of systems is reviewed as above, otherwise negative. PHYSICAL EXAMINATION: GENERAL: Patient is a pleasant male/female who is in no acute distress. The patient appears his/her stated age. VITAL SIGNS: Blood pressure 130/89, pulse 85, temperature 98.1. NEUROLOGIC: The patient is alert and oriented times 3 with no focal neurologic deficits. HEENT: Sclerae without icterus. Mouth has moist mucous membranes with normal pallor. NECK: No JVD. Carotid upstroke brisk. No bruits bilaterally. LUNGS: Clear to auscultation with unlabored respirations. BACK: No scoliosis or kyphosis. CARDIAC: Regular rate and rhythm with normal S1 and S2. No S3 or S4 noted. No significant rubs, murmurs, thrills, or gallops noted throughout the precordium. PMI is not displa nate. There is no parasternal heave. ABDOMEN: Soft, nontender, nondistended. No peritoneal signs present. No hepatosplenomegaly. No abnormal striae. EXTREMITIES: 2+ femoral and 2+ dorsalis pedis pulses. No cyanosis, clubbing, or edema. SKIN: No gross abnormalities. PERTINENT LABORATORY DATA: CK and troponin negative. EKG: Normal sinus rhythm with nonspecific ST-T wave changes. IMPRESSION: 1. Atypical chest pain. 2. Coronary artery disease. 3. Status post bypass surgery. 4. Status post stent placement. RECOMMENDATIONS: At this point, Ms. Martin's troponins are not felt to be significant. Her EKG is nonspecific. This was a subacute thrombosis. She has significant EKG changes in addition to elevate d troponin. She states she has been compliant with Plavix and aspirin. At this point, we would ingrid mmend observation. If she continues to do well overnight, would be okay from my standpoint to discha triston home in a.m.
--- NOTE | 2017-05-30 19:30 | HP ---
DATE OF ADMISSION: 05/29/2017 CHIEF COMPLAINT: Chest pain. HISTORY OF PRESENT ILLNESS: Ms. Neel Martin is a 56-year-old -Swedish female with past m edical history of coronary artery disease, status post CABG and a recent stent placement; hypertensio n; schizophrenia who came because of sudden onset of central chest pain, it was mainly in the retrost ernal area like heaviness, then radiated to the right side and with numbness in the right arm. The p atient states she is under lot of stress due to her son. Did not have any nausea or vomiting. No sh ortness of breath, no headache, no dizziness. She still feels numbness in the right arm. The patien t came to the emergency room because of the chest discomfort. In the ER, the patient was evaluated a nd found to have normal EKG findings and indeterminate troponin I. She is being admitted to rule out myocardial infarction. PAST MEDICAL HISTORY: 1. Hypertension. 2. Coronary artery disease, status post coronary artery bypass grafting. 3. Hypothyroidism. 4. Systolic heart failure. 5. Bipolar disorder. 6. Hyperlipidemia. 7. History of pulmonary embolism, not on Coumadin because the patient is noncompliant. 8. History of breast cancer, status post mastectomy, right breast. 9. Status post [id number] myocardial infarction and status post stent placement in the ramus g raft. PAST SURGICAL HISTORY: 1. Status post coronary artery bypass grafting. 2. Status post mastectomy. ALLERGIES: HYDROCODONE. FAMILY HISTORY: Nothing of interest. SOCIAL HISTORY: The patient lives with family. No history of alcohol intake. Smokes one pack a day . REVIEW OF SYSTEMS: Cardiovascular: Had chest pain. No shortness of breath. Respiratory: No fever or cough. Gastrointestinal: No nausea, vomiting, abdominal pain. Genitourinary: No dysuria or he maturia. Central Nervous System: No headache, no dizziness. PHYSICAL EXAMINATION: GENERAL: The patient is alert, awake, oriented x3. VITAL SIGNS: Temperature 98, pulse 70, respirations 20, blood pressure 120/80. HEENT: Head is normocephalic, atraumatic. Pupils are equal and reactive to light. Nasopharynx is p jaron and dry. Hard and soft palate, no lesion seen. SKIN: Skin turgor decreased. NECK: Supple. No JVD. LUNGS: Bilateral air entry with no rales or rhonchi. HEART: S1, S2 regular. ABDOMEN: Soft. No distention, no tenderness. Normal bowel sounds present. RECTAL: Deferred. CENTRAL NERVOUS SYSTEM: No focal deficit. LABORATORY DATA: CBC shows WBC 5, hemoglobin 12, hematocrit 37, platelets 314. Metabolic panel show s sodium 139, potassium 3.9, chloride 103, CO2 of 27, urea nitrogen 11, creatinine 0.8, glucose 87, C K-MB 0.9, troponin I 0.027. EKG shows normal sinus rhythm, no acute ST-T wave changes. Chest x-ray, negative. ASSESSMENT: 1. Chest pain, rule out myocardial infarction. 2. Coronary artery disease, status post coronary artery bypass grafting and status post stent. 3. Status post acute myocardial infarction recently. 4. Hyperlipidemia. 5. Hypertension. 6. Schizophrenia. PLAN: 1. Vital signs q.4 hours. 2. Activity: As tolerated. 3. Allergies: HYDROCODONE. 4. Hep-Lock. 5. Continue home medications. 6. Diet: Cardiac. 7. Cardiology consult. 8. Troponin I q.8 hours x2. 9. Aspirin 81 mg daily. 10. Nitroglycerin p.r.n.
[2017-05-30] MEDS ORDERED: Atorvastatin Calcium 40 MG TAB PO SCH (21:00)
[2017-05-30] MEDS ORDERED: Nicotine 21 MG PATCH TOP SCH (21:00)
[2017-05-30] MEDS: Benztropine 1 MG TAB PO SCH (22:00)
[2017-05-30] MEDS: Gabapentin 300 MG CAP PO SCH (22:01)
[2017-05-30] MEDS: busPIRone HCl 10 MG TAB PO SCH (22:01)
[2017-05-31] MEDS ORDERED: Levothyroxine Sodium 125 MCG TAB PO SCH (06:00)
[2017-05-31 08:20] VITALS: BP 115/81; TEMP 98.8
[2017-05-31] MEDS: Benztropine 1 MG TAB PO SCH (08:28)
[2017-05-31] MEDS: Gabapentin 300 MG CAP PO SCH (08:29)
[2017-05-31] MEDS: busPIRone HCl 10 MG TAB PO SCH (08:29)
[2017-05-31] MEDS ORDERED: Potassium Chloride 20 MEQ TAB PO SCH (09:00)
[2017-05-31] MEDS ORDERED: Ezetimibe 10 MG TAB PO SCH (09:00)
[2017-05-31] MEDS ORDERED: Furosemide 40 MG TAB PO SCH (09:00)
[2017-05-31] MEDS ORDERED: Clopidogrel Bisulfate 75 MG TAB PO SCH (09:00)
--- NOTE | 2017-05-31 19:03 | EKG ---
Test Reason : CP Blood Pressure : / mmHG Vent. Rate : 081 BPM Atrial Rate : 081 BPM P-R Int : 162 ms QRS Dur : 088 ms QT Int : 408 ms P-R-T Axes : 050 030 074 degrees QTc Int : 473 ms Normal sinus rhythm Possible Left atrial enlargement Prolonged QT Abnormal ECG Confirmed by LIV TRAYLOR, MARIA E ([id number]), news assignment editor WILLIAM SALAMANCA ([id number]) on 05/31/2017 7:02:35 PM Referred By: LIV Confirmed By:MARIA E PECK MD
--- NOTE | 2017-06-02 10:30 | DIS ---
DATE OF ADMISSION: 05/30/2017 DATE OF DISCHARGE: 05/31/2017 ADMITTING DIAGNOSES: 1. Chest pain, rule out myocardial infarction. 2. Coronary artery disease, status post coronary artery bypass grafting, status post stent. 3. Status post acute myocardial infarction recently. 4. Hyperlipidemia. 5. Hypertension. 6. Schizophrenia. FINAL DIAGNOSES: 1. Chest pain, atypical. No evidence of acute myocardial infarction. 2. Coronary artery disease, status post coronary artery bypass grafting. 3. Recent acute myocardial infarction, status post stent. 4. Hypertension. 5. Hyperlipidemia. 6. Schizophrenia. BRIEF SUMMARY OF HOSPITAL COURSE: Ms. Martin is a 56-year-old - Afghan female admitted because of chest pain. Pain in the retrosternal area radiated to the right side with some tingling in the right arm, but no shortness of breath, no headache, no dizziness. The patient was admitted to rule out myocardial infarction. In view of her risk factors and coronary artery disease, cardiac enzymes were done, and repeat troponin I was 0.03 and 0.33. A cardiology consult was done. The patient was seen by Dr. Blakely. He felt the patient had atypical chest pain, not likely cardiac and he suggested just observation. The patient did overnight alright, no chest pain, so she was discharged home. At the time of discharge, she was stable. Her vital signs were stable. Lungs were clear. Heart sounds regular. Abdomen is soft, nontender. Bowel sounds present. DISCHARGE MEDICATIONS: Include atorvastatin 80 mg daily, albuterol inhaler 2 puffs q.i.d. p.r.n., BuSpar 10 mg b.i.d., KCl 20 mEq daily, levothyroxine 125 mcg daily, furosemide 40 mg daily, Zetia 10 mg daily, benztropine 2 mg b.i.d., diltiazem 120 mg daily, metoprolol 50 b.i.d., gabapentin 300 b.i.d. The patient is not on Coumadin. The patient is on Plavix 75 mg daily. FOLLOWUP: The patient will come for followup in 2 weeks. [facility]
== END 2017-05-31 12:19 | disposition home or self-care (01) ==
LOC: ERS 21:39 → 2SW 05-30 00:52
PROVIDERS: ADMIT Internal Medicine; ATTEND Internal Medicine
DX: R07.2 Precordial pain (principal); I25.10 Atherosclerotic heart disease of native coronary artery without angina pectoris; I25.2 Old myocardial infarction; E78.5 Hyperlipidemia, unspecified; F20.9 Schizophrenia, unspecified; I11.0 Hypertensive heart disease with heart failure; I50.20 Unspecified systolic (congestive) heart failure; F31.9 Bipolar disorder, unspecified; F17.210 Nicotine dependence, cigarettes, uncomplicated; E66.9 Obesity, unspecified; Z68.41 Body mass index [BMI] 40.0-44.9, adult; Z91.14 Patient's other noncompliance with medication regimen; Z79.899 Other long term (current) drug therapy; Z88.5 Allergy status to narcotic agent; Z95.1 Presence of aortocoronary bypass graft; Z95.5 Presence of coronary angioplasty implant and graft; Z90.11 Acquired absence of right breast and nipple; Z98.891 History of uterine scar from previous surgery; Z86.711 Personal history of pulmonary embolism; Z85.3 Personal history of malignant neoplasm of breast
CPT/HCPCS: 71045; 80053; 82553; 84484 ×3; 85025; 93005; 93306; 99285; 99406; G0378; 36415; A4216

== ENCOUNTER 2017-06-12 18:20 | Emergency (ER) | payer MEDICARE, MEDICAID ==
--- NOTE | 2017-06-12 19:30 | RAD ---
RADIOGRAPH CHEST 1 VIEW: 06/12/17 HISTORY: 56-year-old female with chest pain, palpitations, and dyspnea. FINDINGS: There are no air space densities, pulmonary edema, pneumothorax, or cardiomegaly. The lateral costop hrenic angles are sharp. IMPRESSION: 1. No acute cardiopulmonary findings. 2. Sternotomy wires. reid mesa POS: [facility]
[2017-06-12 19:32] LABS: Hemoglobin 13.1 g/dL (12.0-16.0); Mean Corpuscular HGB CONC 33.2 g/dL (32.0-36.0); Mean Corpuscular Hemoglobin 24.1 pg (27.0-31.0); Mean Corpuscular Volume 72.7 fl (81.0-99.0); Platelet Count 304 thou/uL (130-400); RBC Distribution Width 17.6 % (11.5-14.5); Red Blood Cell (RBC) Count 5.43 mill/uL (4.20-5.40); White Blood Cell (WBC) Count 5.8 thou/uL (4.8-10.8)
[2017-06-12 19:46] LABS: INR-International Normal Ratio 1.1; PTT 27.6 SEC (22.9-36.1); Prothrombin Time 13.8 SEC (12.0-14.7)
[2017-06-12 19:47] LABS: MDiff Complete? YES
[2017-06-12 19:48] LABS: Anisocytosis SLIGHT = 6-15 cells (100X) (0-5/hpf); Band 2 % (5-11); Eosinophils 3 % (0-10); Lymphocytes 57 % (21-51); Microcytosis SLIGHT = 6-15 cells (100X) (0-5/hpf); Monocytes 8 % (0-10); Neutrophil 14 % (42-75); PLT Morphology Comment Appears Adequate; Polychromasia SLIGHT = 2-3 cells (100X) (0-2/hpf); Reactive Lymphocytes 15 % (0-10)
[2017-06-12 19:49] LABS: ALT (SGPT) 12 U/L (8-55); AST (SGOT) 16 U/L (5-34); Alkaline Phosphatase 197 U/L (40-150); Anion Gap 16 mmol/L (10-20); BUN (Urea Nitrogen) 10 mg/dL (9.8-20.1); Bilirubin, Total 0.3 mg/dL (0.2-1.2); CK (CPK) 89 U/L (29-168); Calc. Creatinine Clearance 0 mL/min (70-130); Calcium 10.3 mg/dL (7.8-10.44); Carbon Dioxide 24 mmol/L (22-29); Chloride 104 mmol/L (98-107); Estimated GFR-MDRD 89; Glucose 79 mg/dL (70-105); Potassium 3.7 mmol/L (3.5-5.1); Sodium 140 mmol/L (136-145)
[2017-06-12 19:54] LABS: Troponin I 0.022 ng/mL (< 0.028)
== END 2017-06-12 22:15 | disposition home or self-care (01) ==
LOC: ERS 18:20
DX: R00.2 Palpitations (principal); I25.10 Atherosclerotic heart disease of native coronary artery without angina pectoris; E03.9 Hypothyroidism, unspecified; E78.5 Hyperlipidemia, unspecified; I10 Essential (primary) hypertension; E11.9 Type 2 diabetes mellitus without complications; F41.9 Anxiety disorder, unspecified; F31.9 Bipolar disorder, unspecified; F25.9 Schizoaffective disorder, unspecified; F17.210 Nicotine dependence, cigarettes, uncomplicated; Z79.02 Long term (current) use of antithrombotics/antiplatelets; Z85.3 Personal history of malignant neoplasm of breast; Z79.899 Other long term (current) drug therapy
CPT/HCPCS: 36415; 71045; 80053; 82553; 83880; 84484; 85025; 85610; 85730; 93005; 94760

== ENCOUNTER 2017-08-29 09:12 | Outpatient (CLI) | payer MEDICARE, MEDICAID | END 2017-08-29 09:13 | disposition home or self-care (01) | LOC: BICMAMMO 09:12 | PROVIDERS: ATTEND Internal Medicine | DX: N64.4 Mastodynia (principal); Z85.3 Personal history of malignant neoplasm of breast | CPT/HCPCS: 76642; 77065; G0279 ==

== ENCOUNTER 2017-09-27 10:11 | Observation (INO) | payer MEDICARE, MEDICAID ==
[2017-09-27 10:45] LABS: #Basophils 0.1 thou/uL (0.0-0.2); #Eosinphils 0.1 thou/uL (0.0-0.7); #Lymphocytes 2.4 thou/uL (1.20-3.40); #Monocytes 0.4 thou/uL (0.11-0.59); #Neutrophils 3.7 thou/uL (1.40-6.50); %Basophils 1.6 % (0.0-1.0); %Eosinophils 1.1 % (0.0-10.0); %Lymphocytes 35.7 % (21.0-51.0); %Monocytes 6.7 % (0.0-10.0); %Neutrophils 54.9 % (42.0-75.0); Hemoglobin 13.6 g/dL (12.0-16.0); Mean Corpuscular HGB CONC 34.7 g/dL (32.0-36.0); Mean Corpuscular Hemoglobin 26.4 pg (27.0-31.0); Mean Corpuscular Volume 76.1 fL (78.0-98.0); Mean Platelet Volume 7.2 fL (7.4-10.4); Platelet Count 271 thou/uL (130-400); RBC Distribution Width 14.5 % (11.5-14.5); Red Blood Cell (RBC) Count 5.17 mill/uL (4.20-5.40); White Blood Cell (WBC) Count 6.7 thou/uL (4.8-10.8)
--- NOTE | 2017-09-27 11:06 | RAD ---
CHEST 1 VIEW: COMPARISON: 05/23/17. HISTORY: Pain. FINDINGS: There are sternotomy wires. Normal cardiac silhouette. Lungs and pleural spaces are clear. No pneu mothorax or osseous abnormalities. IMPRESSION: No acute cardiopulmonary process. POS: [facility]
[2017-09-27 11:11] LABS: CKMB 1.1 ng/mL (0-6.6); Troponin I Less than 0.010 ng/mL (< 0.028)
[2017-09-27 12:15] LABS: ALT (SGPT) 16 U/L (8-55); AST (SGOT) 15 U/L (5-34); Albumin 3.9 g/dL (3.5-5.0); Alkaline Phosphatase 213 U/L (40-150); Anion Gap 14 mmol/L (10-20); BUN (Urea Nitrogen) 11 mg/dL (9.8-20.1); Bilirubin, Total 0.6 mg/dL (0.2-1.2); Calc. Creatinine Clearance 0 mL/min (70-130); Calcium 9.4 mg/dL (7.8-10.44); Carbon Dioxide 26 mmol/L (22-29); Chloride 101 mmol/L (98-107); Estimated GFR-MDRD 88; Globulin 3.3 g/dL (2.4-3.5); Glucose 208 mg/dL (70-105); Protein, Total 7.2 g/dL (6.0-8.3); Sodium 137 mmol/L (136-145)
[2017-09-27 14:17] LABS: Troponin I Less than 0.010 ng/mL (< 0.028)
[2017-09-27 14:47] VITALS: BMI 43.9
[2017-09-27] MEDS ORDERED: PROVENTIL INHALER 6.7 G (200 INHALATIONS) INH PRN (17:43)
[2017-09-27 18:15] LABS: Troponin I 0.026 ng/mL (< 0.028)
[2017-09-27] MEDS: busPIRone HCl 10 MG TAB PO SCH (20:18)
[2017-09-27] MEDS: Benztropine 1 MG TAB PO SCH (20:18)
--- NOTE | 2017-09-28 01:53 | HP ---
DATE OF ADMISSION: 09/27/2017 REASON FOR ADMISSION AND CHIEF COMPLAINT: Chest pain. HISTORY OF PRESENT ILLNESS: Ms. Martin is a 56-year-old -[place] female with past medical h istory of coronary artery disease, status post coronary artery bypass grafting, hypertension, hypothy roidism, who came because of chest pain that started last night. The patient says she had pressure-l jacinto pain in the retrosternal area, nonradiating, associated with shortness of breath, diaphoresis. T he patient says the pain went away last night after she took some Zantac, but this morning pain came back, it is more like a pressure-like, nonradiating. The pain is not improving, so the patient decid ed to come to the hospital. EMS was called. EMS gave the patient aspirin as well as I think nitro a s well. Patient says the pain is partially relieved. In the ER, the patient was evaluated and found to have normal EKG and cardiac enzymes. She is admitted to rule out myocardial infarction. Current ly, she does not have chest pain. PAST MEDICAL HISTORY: 1. Hypertension. 2. Coronary artery disease, status post coronary artery bypass graft. 3. Systolic heart failure. 4. Hypothyroidism. 5. Bipolar disorder. 6. Hyperlipidemia. 7. History of pulmonary embolism, not on anticoagulation because the patient is noncompliant. 8. History of breast cancer, status post mastectomy, right. 9. Status post acute myocardial infarction. PAST SURGICAL HISTORY: 1. Status post CABG. 2. Status post mastectomy. ALLERGIES: HYDROCODONE. CURRENT MEDICATIONS: Albuterol inhaler two puffs q.i.d. p.r.n., Lipitor 80 mg at bedtime, Cogentin 2 mg b.i.d., BuSpar 10 mg b.i.d., Plavix 75 mg daily, Lasix 20 mg daily, levothyroxine 125 mcg daily, metoprolol 50 daily, KCl 20 mEq daily. FAMILY HISTORY: Nothing of interest. SOCIAL HISTORY: The patient lives with family. No history of smoking. No history of alcohol intake . REVIEW OF SYSTEMS: Cardiovascular: Has chest pain and shortness of breath. Respiratory: No fever or cough. Gastrointestinal: No nausea or vomiting. No abdominal pain. Genitourinary: No dysuria or hematuria. Central nervous system: No headache, no dizziness. PHYSICAL EXAMINATION: GENERAL: The patient is alert, awake, oriented x3. VITAL SIGNS: Temperature 98, pulse 74, respirations 20, blood pressure 130/80. HEENT: Head is normocephalic, atraumatic. Pupils are equal and reactive to light. Nasopharynx is p ink and moist. NECK: Supple. No JVD. LUNGS: Bilateral air entry present, no rales, no rhonchi. CARDIAC: S1, S2 regular ABDOMEN: Soft, no distention, no tenderness. Normal bowel sounds present. RECTAL: Deferred. CENTRAL NERVOUS SYSTEM: No focal deficit. LABORATORY AND X-RAY FINDINGS: CBC shows WBC 6.7, hemoglobin 13, hematocrit 39, platelets 271. [place] bolic panel: Sodium 137, potassium 4, chloride 101, CO2 of 26, urea nitrogen 11, creatinine 0.8, glu cose 208, CK-MB 1.1, troponin I less than 0.010. EKG shows normal sinus rhythm, no acute ST-T wave c hanges seen. Chest x-ray negative. ASSESSMENT: 1. Chest pain, rule out myocardial infarction. 2. Coronary artery disease, status post coronary artery bypass graft. 3. History of systolic heart failure. 4. Hypertension. 5. Hyperlipidemia. 6. Bipolar disorder. PLAN: 1. Vital signs q.4 hours. 2. Activity: As tolerated. 3. Allergies: HYDROCODONE. 4. Hep-Lock. 5. Diet: Cardiac. 6. Troponin I q.8 hours x2. 7. Continue home medications. 8. We will obtain a stress test. 9. Aspirin 81 mg daily.
[2017-09-28] MEDS: Levothyroxine Sodium 125 MCG TAB PO SCH (05:33)
[2017-09-28] MEDS ORDERED: Atorvastatin Calcium 40 MG TAB PO SCH (09:00)
[2017-09-28] MEDS: Benztropine 1 MG TAB PO SCH ×2 (09:22→20:05)
[2017-09-28] MEDS: busPIRone HCl 10 MG TAB PO SCH ×2 (09:22→20:05)
[2017-09-28] MEDS: Furosemide 20 MG TAB PO SCH (09:22)
[2017-09-28] MEDS: Clopidogrel Bisulfate 75 MG TAB PO SCH (09:22)
[2017-09-28] MEDS: Potassium Chloride 20 MEQ TAB PO SCH (09:22)
[2017-09-28] MEDS ORDERED: ISOVUE-370 76%-LOCM 1 ML ONE (12:57)
--- NOTE | 2017-09-28 15:57 | CT ---
CTA CHEST WITH AND WITHOUT CONTRAST AND 3D VOLUME RENDERING: Indication: Chest pain and elevated D-dimer. FINDINGS: There is no evidence of a significant filling defect of the pulmonary trail system. Nonspecific fat d ensity with nodularity is seen at the anterior aspect of the medial right hemithorax, pleural based. Scattered blebs are seen. There is osseous degenerative change. Vascular calcification is present. Th ere are scattered granulomatous calcifications. IMPRESSION: No large, central pulmonary embolus. POS: H
--- NOTE | 2017-09-28 18:32 | CON ---
DATE OF CONSULTATION: 09/28/2017 HISTORY OF PRESENT ILLNESS: The patient is a pleasant 56-year-old woman who presents for evaluation of chest discomfort and dyspnea. The patient has a previous history of coronary artery disease. She underwent coronary artery bypass graft surgery x3 in 2017. She had a JARVIS placed to the diagonal, saphenous vein graft to the LAD and to the ramus. The right coronary artery could not be bypassed and was totally occluded. The patient also has a history of a pulmonary embolus. The patient was admitted 04/2017 with chest pain. She underwent a repeat cardiac catheterization. She was felt to have patent grafts and was treated medically. She presents once again with increasing dyspnea and chest discomfort. She reports that this chest pain began yesterday. It was midsternal and did not radiate. It was persistent and eventually resolved. She woke up this morning with recurrent chest discomfort. She states it has been intermittent. PAST MEDICAL HISTORY: 1. Coronary artery disease. 2. History of pulmonary embolus. 3. Hypertension. 4. Diabetes mellitus. 5. Dyslipidemia. 6. Bipolar disorder. 7. History of breast carcinoma. PAST SURGICAL HISTORY: Coronary bypass surgery, mastectomy. SOCIAL HISTORY: She continues to smoke. FAMILY HISTORY: There is a positive family history of coronary artery disease. MEDICATIONS ON ADMISSION: Metoprolol 50 XL daily, Synthroid 125 mcg daily, Lasix 20 daily, Lipitor 80 at bedtime, Plavix 75 daily, and Cogentin 2 mg p.o. b.i.d.: ALLERGIES: HYDROCODONE. REVIEW OF SYSTEMS: Ten point system noticeable for difficulty swallowing. PHYSICAL EXAMINATION: VITAL SIGNS: Obese woman in mild distress with a blood pressure 128/95. NECK: No jugular venous distention. No carotid bruits. LUNGS: Clear to auscultation. HEART: Regular rate and rhythm, normal S1, S2, no murmurs. ABDOMEN: Distended. EXTREMITIES: Showed trace edema. SKIN: Warm and dry. NEUROLOGIC: Nonfocal. VASCULAR: Radial pulses are 2+. LABORATORY: Sodium 137, potassium 4.0, chloride 101, bicarbonate 26, BUN 11, creatinine is 0.82, glucose 208. Troponin was less than 0.01. Her EKG revealed normal sinus rhythm with a nonspecific ST-T wave abnormality. IMPRESSION: 1. Chest pain/dyspnea. 2. History of severe coronary artery disease. 3. History of coronary bypass surgery. 4. Hypertension. 5. Dyslipidemia. 6. Diabetes mellitus. 7. History of pulmonary embolism. 8. Obesity. This patient presents with chest pain and dyspnea with her history of pulmonary embolus. We will need to obtain a D-dimer. If this is elevated, then we would recommend proceeding with CT scan. There is no evidence of any changes on electrocardiogram and her cardiac enzymes reveal no evidence of myocardial infarction. We will follow this patient with you throughout her hospitalization. MARCELINO
[2017-09-28] MEDS: Atorvastatin Calcium 40 MG TAB PO SCH (20:05)
[2017-09-29] MEDS: Levothyroxine Sodium 125 MCG TAB PO SCH (04:25)
[2017-09-29] MEDS: Clopidogrel Bisulfate 75 MG TAB PO SCH (08:20)
[2017-09-29] MEDS: Potassium Chloride 20 MEQ TAB PO SCH (08:20)
[2017-09-29] MEDS: Benztropine 1 MG TAB PO SCH ×2 (08:20→20:13)
[2017-09-29] MEDS: busPIRone HCl 10 MG TAB PO SCH ×2 (08:20→20:13)
[2017-09-29] MEDS: Furosemide 20 MG TAB PO SCH (08:20)
[2017-09-29] MEDS: Atorvastatin Calcium 40 MG TAB PO SCH (20:13)
[2017-09-30] MEDS: Levothyroxine Sodium 125 MCG TAB PO SCH (04:20)
[2017-09-30] MEDS: Potassium Chloride 20 MEQ TAB PO SCH (10:39)
[2017-09-30] MEDS: busPIRone HCl 10 MG TAB PO SCH (10:40)
[2017-09-30] MEDS: Benztropine 1 MG TAB PO SCH (10:40)
[2017-09-30] MEDS: Furosemide 20 MG TAB PO SCH (10:40)
[2017-09-30] MEDS ORDERED: Regadenoson 0.4 MG/5 ML SYRINGE ONE (11:12)
[2017-09-30 11:24] VITALS: BP 111/75; TEMP 97.5
--- NOTE | 2017-09-30 12:27 | NM ---
RADIONUCLIDE STRESS AND REST MYOCARDIAL PERFUSION SCAN WITH CT ATTENUATION CORRECTION AND SPECT IMAGI NG: LEFT VENTRICULAR WALL MOTION EVALUATION AND EJECTION FRACTION: HISTORY: Chest pain. FINDINGS: Lexiscan protocol was used. There is heterogeneous uptake of radiotracer throughout the left ventric ular myocardium with some diaphragmatic attenuation apparent. No focal perfusion defect or reversibi lity is reliably demonstrated. QGS analysis of gated SPECT images show no focal wall motion abnormalities. Ejection fraction is timothy culated at 65%. IMPRESSION: Normal myocardial perfusion scan. Normal left ventricular ejection fraction. POS: [facility]
--- NOTE | 2017-10-01 10:21 | DIS ---
DATE OF ADMISSION: 09/27/2017 DATE OF DISCHARGE: 09/30/2017 ADMITTING DIAGNOSES: 1. Chest pain, rule out myocardial infarction; coronary artery disease, status post coronary artery bypass grafting. 2. Hypertension. 3. History of systolic heart failure. 4. Hyperlipidemia. 5. Bipolar disorder. FINAL DIAGNOSES: 1. Chest pain. No evidence of acute myocardial infarction, negative stress test; coronary artery di sease, status post coronary artery bypass grafting. 2. Systolic heart failure. 3. Hypertension. 4. Hyperlipidemia. 5. Bipolar disorder. BRIEF SUMMARY OF HOSPITAL COURSE: Ms. Martin is a 56-year-old -[place]e female who [facility]. The patient has history of coronary artery disease, hyperlipidemia. In v iew of risk factors, she was admitted to rule out myocardial infarction. Serial cardiac enzymes were done, they are within normal limits. Cardiology consult was done. Initially, seen by Dr. Aviles. He felt the patient may have PE. A CT angio was done and it was negative for pulmonary embolism. The patient was followed by Dr. Aquino, who suggested a stress test. The patient underwent Cardiol ite stress test and it was reported as negative for ischemia. The patient's chest pain has completel y resolved. In view of improvement, the patient was discharged. At the time of discharge, she was s table. Her vital signs were stable. Lungs were clear. Heart sounds were regular. Abdomen was soft , nontender. Bowel sounds present. DISCHARGE MEDICATIONS: Include Lipitor 80 mg daily, albuterol inhaler, ProAir 2 puffs q.i.d. p.r.n., BuSpar 10 mg b.i.d., KCl 20 mEq daily, levothyroxine 125 mcg daily, Lasix 20 mg daily, Cogentin 2 mg b.i.d., metoprolol 50 mg daily, Plavix was discontinued, aspirin 81 mg daily. FOLLOWUP: The patient will come for followup in 2 weeks.
== END 2017-09-30 17:07 | disposition home or self-care (01) ==
LOC: ERS 10:11 → 2SW 14:30
PROVIDERS: ADMIT Internal Medicine; ATTEND Internal Medicine
DX: R07.9 Chest pain, unspecified (principal); I11.0 Hypertensive heart disease with heart failure; I50.20 Unspecified systolic (congestive) heart failure; E78.5 Hyperlipidemia, unspecified; F31.9 Bipolar disorder, unspecified; I25.10 Atherosclerotic heart disease of native coronary artery without angina pectoris; I25.2 Old myocardial infarction; E66.9 Obesity, unspecified; E11.9 Type 2 diabetes mellitus without complications; Z95.1 Presence of aortocoronary bypass graft; Z88.8 Allergy status to other drugs, medicaments and biological substances; Z79.02 Long term (current) use of antithrombotics/antiplatelets; Z79.899 Other long term (current) drug therapy; Z86.711 Personal history of pulmonary embolism; Z68.45 Body mass index [BMI] 70 or greater, adult
CPT/HCPCS: 71045; 71275; 78452; 80053; 82553; 83880; 84484 ×2; 85025; 85379; 93005; 93017; 99285; A9500; G0378 ×2; 36415; J2785

== ENCOUNTER 2017-10-29 16:50 | Emergency (ER) | payer MEDICARE, MEDICAID ==
[2017-10-29 17:37] LABS: Hemoglobin 13.2 g/dL (12.0-16.0); Mean Corpuscular HGB CONC 34.2 g/dL (32.0-36.0); Mean Corpuscular Hemoglobin 26.6 pg (27.0-31.0); Mean Corpuscular Volume 77.9 fL (78.0-98.0); Mean Platelet Volume 7.3 fL (7.4-10.4); Platelet Count 235 thou/uL (130-400); RBC Distribution Width 14.9 % (11.5-14.5); Red Blood Cell (RBC) Count 4.96 mill/uL (4.20-5.40); White Blood Cell (WBC) Count 6.8 thou/uL (4.8-10.8)
[2017-10-29 17:48] LABS: ALT (SGPT) 12 U/L (8-55); AST (SGOT) 15 U/L (5-34); Albumin 3.8 g/dL (3.5-5.0); Alkaline Phosphatase 183 U/L (40-150); Anion Gap 11 mmol/L (10-20); BUN (Urea Nitrogen) 11 mg/dL (9.8-20.1); Bilirubin, Total 0.4 mg/dL (0.2-1.2); Calc. Creatinine Clearance 0 mL/min (70-130); Calcium 9.6 mg/dL (7.8-10.44); Carbon Dioxide 28 mmol/L (22-29); Chloride 107 mmol/L (98-107); Estimated GFR-MDRD 73; Globulin 3.2 g/dL (2.4-3.5); Glucose 93 mg/dL (70-105); Sodium 142 mmol/L (136-145)
[2017-10-29 17:51] LABS: Anisocytosis SLIGHT = 6-15 cells (100X) (0-5/hpf); Eosinophils 1 % (0-10); Hypochromia SLIGHT = 6-15 cells (100X) (0-5/hpf); Lymphocytes 60 % (21-51); MDiff Complete? YES; Monocytes 5 % (0-10); Neutrophil 30 % (42-75); PLT Morphology Comment Appears Adequate; Reactive Lymphocytes 3 % (0-10)
[2017-10-29 17:59] LABS: CKMB 1.6 ng/mL (0-6.6); Troponin I 0.013 ng/mL (< 0.028)
--- NOTE | 2017-10-29 18:20 | RAD ---
AP VIEW OF THE CHEST: 10/29/17 INDICATION: Chest pain. COMPARISON: Prior study dated 09/27/17. IMPRESSION: Midline sternotomy changes are stable. Mild cardiomegaly is stable. Lungs are clear. No acute osseous abnormality is evident. POS: [facility]
== END 2017-10-29 18:38 | disposition home or self-care (01) ==
LOC: ERS 16:50
DX: J45.901 Unspecified asthma with (acute) exacerbation (principal); E03.9 Hypothyroidism, unspecified; E11.9 Type 2 diabetes mellitus without complications; E78.5 Hyperlipidemia, unspecified; I10 Essential (primary) hypertension; I25.2 Old myocardial infarction; F41.9 Anxiety disorder, unspecified; F31.9 Bipolar disorder, unspecified; F17.210 Nicotine dependence, cigarettes, uncomplicated; Z79.899 Other long term (current) drug therapy
CPT/HCPCS: 36415; 71045; 80053; 82553; 83880; 84484; 85025; 93005; 94640; J7620

== ENCOUNTER 2017-12-16 19:06 | Emergency (ER) | payer MEDICARE, OTHER ==
--- NOTE | 2017-12-16 19:52 | RAD ---
ONE VIEW CHEST: 12/16/17 HISTORY: Chest pain. COMPARISON: 10/29/17. FINDINGS: There are sternotomy wires. Slight elongation of the aorta. Normal cardiac silhouette. The pulmonary vessels and hilum are normal. Costophrenic angles are clear. No consolidation or mass. No pneumothor ax or osseous abnormalities. IMPRESSION: No acute cardiopulmonary process. POS: [facility]
--- NOTE | 2017-12-17 17:09 | EKG ---
Test Reason : Blood Pressure : / mmHG Vent. Rate : 084 BPM Atrial Rate : 084 BPM P-R Int : 146 ms QRS Dur : 092 ms QT Int : 384 ms P-R-T Axes : 000 109 146 degrees QTc Int : 453 ms Normal sinus rhythm Rightward axis Left atrial enlargement Inferior infarct , age undetermined Abnormal ECG Confirmed by KIRSTY TRAYLOR, DR. Bentley ([id number]) on 12/17/2017 5:08:58 PM Referred By: Confirmed By:DR. Sheree LOFTON MD
== END 2017-12-16 19:58 | disposition home or self-care (01) ==
LOC: ERS 19:06
DX: K29.70 Gastritis, unspecified, without bleeding (principal); R07.9 Chest pain, unspecified; E03.9 Hypothyroidism, unspecified; E11.9 Type 2 diabetes mellitus without complications; E78.5 Hyperlipidemia, unspecified; I10 Essential (primary) hypertension; I25.2 Old myocardial infarction; F31.9 Bipolar disorder, unspecified; F25.9 Schizoaffective disorder, unspecified; F17.210 Nicotine dependence, cigarettes, uncomplicated; F41.9 Anxiety disorder, unspecified; Z79.899 Other long term (current) drug therapy
CPT/HCPCS: 71045; 93005

== ENCOUNTER 2018-04-14 18:40 | Emergency (ER) | payer MEDICARE, OTHER ==
[2018-04-14] MEDS ORDERED: predniSONE 20 MG TAB ONE (19:54)
[2018-04-14] MEDS ORDERED: Azithromycin 250 MG TAB ONE (19:54)
--- NOTE | 2018-04-14 21:26 | RAD ---
PORTABLE UPRIGHT FRONTAL CHEST RADIOGRAPH 04/14/18 COMPARISON: 12/16/17. HISTORY: Shortness of breath and cough. FINDINGS: Midline sternotomy wires are present. Clips overlie the right breast shadow/inferior right axillary r egion. No pneumothorax, pleural fluid focal consolidation, or alveolar edema. IMPRESSION: No acute findings. POS: [facility]
== END 2018-04-14 21:42 | disposition home or self-care (01) ==
LOC: ERS 18:40
DX: J20.9 Acute bronchitis, unspecified (principal); E03.9 Hypothyroidism, unspecified; E78.5 Hyperlipidemia, unspecified; I10 Essential (primary) hypertension; I25.2 Old myocardial infarction; F31.9 Bipolar disorder, unspecified; F41.9 Anxiety disorder, unspecified; F20.9 Schizophrenia, unspecified; F17.210 Nicotine dependence, cigarettes, uncomplicated; Z79.899 Other long term (current) drug therapy
CPT/HCPCS: 71045; 87804; 94640; J7506; J7620

== ENCOUNTER 2019-04-19 09:35 | Outpatient (CLI) | payer MEDICARE, MEDICAID ==
--- NOTE | 2019-04-19 10:38 | CT ---
EXAM: CT chest without contrast: Low-dose protocol is followed. INDICATIONS: Low-dose screening. Nicotine use x30 years. History of breast cancer with right mastecto my. COMPARISON: CT chest 09/28/2017 FINDINGS: There are chronic lung parenchymal changes. Scattered blebs and interstitial prominence. Ap ical pleural thickening and stranding appears stable. Anterior pleural-based nodular opacities in the right mid lung field are seen. There are 2 adjacent n odular opacities, each measuring 1.2 cm. These have internal low densities and are stable from the prior CT scan indicating benign pleural based process. A calcified granuloma in the left midlung is stable measuring 5 mm. A 4 mm nodule right mid lung along the fissure is stable. Mediastinum unremarkable. Post right mastectomy. No axillary adenopathy. Images through upper abdomen unremarkable. Osseous structures unremarkable. IMPRESSION: 1. Stable chest CT findings. Lung RADS 2. Recommend annual low-dose screening CT
--- NOTE | 2019-04-19 11:35 | MMO ---
Bilateral MAMMO Bilat Screen [facility]. CLINICAL HISTORY: Patient is 58 years old and is seen for screening. The patient has no family history of breast cancer. The patient has a history of right Mastectomy at age 30 - malignant. VIEWS: The views performed were: bilateral craniocaudal with tomosynthesis and bilateral mediolateral oblique with tomosynthesis. FILMS COMPARED: The present examination has been compared to prior imaging studies performed at [facility] on 08/29/2017, and at [facility] on 01/14/2011, 02/21/2014 and 03/13/2016. This study has been interpreted with the assistance of computer-aided detection. MAMMOGRAM FINDINGS: There are no suspicious masses, suspicious calcifications, or new areas of architectural distortion. IMPRESSION: THERE IS NO MAMMOGRAPHIC EVIDENCE OF MALIGNANCY. A ROUTINE FOLLOW-UP MAMMOGRAM IN 1 YEAR IS RECOMMENDED. THE RESULTS OF THIS EXAM WERE SENT TO THE PATIENT. ACR BI-RADS Category 1 - Negative MAMMOGRAPHY NOTE: 1. A negative mammogram report should not delay a biopsy if a dominant of clinically suspicious mass is present. 2. Approximately 10% to 15% of breast cancers are not detected by mammography. 3. Adenosis and dense breasts may obscure an underlying neoplasm. Reported by: KATRIN PETTY MD Electonically Signed: [id number]
== END 2019-04-19 09:36 | disposition home or self-care (01) ==
LOC: CT 09:35
PROVIDERS: ATTEND Internal Medicine Medical Oncology
DX: Z12.31 Encounter for screening mammogram for malignant neoplasm of breast (principal); Z12.2 Encounter for screening for malignant neoplasm of respiratory organs; F17.210 Nicotine dependence, cigarettes, uncomplicated; Z85.3 Personal history of malignant neoplasm of breast; Z80.1 Family history of malignant neoplasm of trachea, bronchus and lung; Z90.11 Acquired absence of right breast and nipple
CPT/HCPCS: 77063; 77067; G0297

== ENCOUNTER 2020-01-10 20:40 | Emergency (ER) | payer MEDICARE, MEDICAID ==
[2020-01-10] MEDS ORDERED: Albuterol Sulfate 2.5 mg/3 ml Neb ONE ×2 (20:58→20:59)
[2020-01-10] MEDS ORDERED: methylPREDNISolone Sod Succ/PF 125 MG/2 ML VIAL ONE (20:59)
[2020-01-10] MEDS ORDERED: Lorazepam 2 MG/ML VIAL ONE (21:31)
--- NOTE | 2020-01-10 21:39 | RAD ---
Chest AP view INDICATION: Shortness of breath COMPARISON: April 14, 2018 FINDINGS: Lungs: The lungs are clear Cardiac silhouette: Mild cardiomegaly and midline sternotomy changes are stable. Pulmonary vasculature: Normal Pleural spaces: No pleural effusion or pneumothorax is demonstrated. Upper abdomen: No abnormality seen. Osseous structures: No acute osseous abnormality. Additional findings: Surgical clips of the right axillary region are stable. Elevation the right hem idiaphragm is stable. IMPRESSION: Stable cardiomegaly without evidence of cardiac decompensation.
[2020-01-10 22:00] LABS: #Basophils 0.2 thou/uL (0.0-0.2); #Lymphocytes 3.5 thou/uL (1.20-3.40); #Monocytes 0.6 thou/uL (0.11-0.59); #Neutrophils 3.6 thou/uL (1.40-6.50); %Basophils 2.2 % (0.0-1.0); %Eosinophils 0.4 % (0.0-10.0); %Lymphocytes 44.4 % (21.0-51.0); %Monocytes 7.1 % (0.0-10.0); Hemoglobin 13.5 g/dL (12.0-16.0); Mean Corpuscular HGB CONC 32.7 g/dL (32.0-36.0); Mean Corpuscular Hemoglobin 26.4 pg (27.0-31.0); Mean Corpuscular Volume 80.7 fL (78.0-98.0); Mean Platelet Volume 7.8 fL (7.4-10.4); Platelet Count 256 thou/uL (130-400); RBC Distribution Width 13.9 % (11.5-14.5); Red Blood Cell (RBC) Count 5.13 mill/uL (4.20-5.40); White Blood Cell (WBC) Count 7.8 thou/uL (4.8-10.8)
[2020-01-10 22:21] LABS: ALT (SGPT) 13 U/L (8-55); AST (SGOT) 17 U/L (5-34); Albumin 3.6 g/dL (3.5-5.0); Alkaline Phosphatase 186 U/L (40-110); Anion Gap 12 mmol/L (10-20); BUN (Urea Nitrogen) 7 mg/dL (9.8-20.1); Bilirubin, Total 0.7 mg/dL (0.2-1.2); Calc. Creatinine Clearance 0 mL/min (70-130); Calcium 9.8 mg/dL (7.8-10.44); Carbon Dioxide 29 mmol/L (22-29); Chloride 102 mmol/L (98-107); Estimated GFR-MDRD Greater than 90; Globulin 3.7 g/dL (2.4-3.5); Glucose 125 mg/dL (70-105); Potassium 3.5 mmol/L (3.5-5.1); Protein, Total 7.3 g/dL (6.0-8.3); Sodium 139 mmol/L (136-145)
== END 2020-01-10 23:05 | disposition home or self-care (01) ==
LOC: ERS 20:40
DX: J45.901 Unspecified asthma with (acute) exacerbation (principal); E03.9 Hypothyroidism, unspecified; E78.5 Hyperlipidemia, unspecified; E78.00 Pure hypercholesterolemia, unspecified; I10 Essential (primary) hypertension; I25.2 Old myocardial infarction; F31.9 Bipolar disorder, unspecified; F41.9 Anxiety disorder, unspecified; F25.9 Schizoaffective disorder, unspecified; F17.210 Nicotine dependence, cigarettes, uncomplicated; Z79.899 Other long term (current) drug therapy; Z79.84 Long term (current) use of oral hypoglycemic drugs
CPT/HCPCS: 36415; 71045; 80053; 83880; 84484; 85025; 93005; 94760; 96374; 96375; J2060; J2930; J7611

== ENCOUNTER 2020-01-20 09:13 | Emergency (ER) | payer MEDICARE, MEDICAID ==
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
[2020-01-20] MEDS ORDERED: Ketorolac Tromethamine 30 MG/ML VIAL ONE (10:22)
== END 2020-01-20 10:37 | disposition home or self-care (01) ==
LOC: ERS 09:13
DX: S29.012A Strain of muscle and tendon of back wall of thorax, initial encounter (principal); M54.5 Low back pain; F41.9 Anxiety disorder, unspecified; F31.9 Bipolar disorder, unspecified; F25.9 Schizoaffective disorder, unspecified; F17.210 Nicotine dependence, cigarettes, uncomplicated; E03.9 Hypothyroidism, unspecified; R73.03 Prediabetes; E78.5 Hyperlipidemia, unspecified; E78.00 Pure hypercholesterolemia, unspecified; I10 Essential (primary) hypertension; I25.2 Old myocardial infarction; J45.909 Unspecified asthma, uncomplicated; Z85.3 Personal history of malignant neoplasm of breast; Z79.899 Other long term (current) drug therapy; Z79.84 Long term (current) use of oral hypoglycemic drugs; V49.9XXA Car occupant (driver) (passenger) injured in unspecified traffic accident, initial encounter
CPT/HCPCS: 71046; 72100; 96372; J1885

== ENCOUNTER 2020-08-28 09:54 | Emergency (ER) | payer MEDICARE, MEDICAID ==
[2020-08-28 10:40] LABS: Bilirubin Negative (Negative); Blood, Urine Moderate (Negative); Glucose, Urine (Dipstick) Negative (Negative); Ketone, Urine Negative (Negative); Leukocyte Negative (Negative); Nitrite Negative (Negative); Protein, Urine (Dipstick) Negative (Neg-Trace); Urobilinogen 0.2 mg/dL (Less than 2); pH, Urine 6.5 (5.0-9.0)
[2020-08-28 10:44] LABS: Bacteria/HPF None Seen HPF (None Seen); Clarity Clear (Clear); RBC/HPF 0-3 HPF (0-3); Specific Gravity, Urine 1.002 (1.002-1.036); Squamous Epithelial 0-3 HPF (0-3); WBC/HPF None Seen HPF (0-3)
[2020-08-28 11:03] LABS: BHCG - Serum Negative (NEGATIVE); Pregs Control Background? CLEAR/WHITE (CLR/WHITE); Pregs Control Bar Appear? YES (CONTROL BAR)
[2020-08-28 11:19] LABS: #Basophils 0.2 thou/uL (0.0-0.2); #Eosinphils 0.1 thou/uL (0.0-0.7); #Monocytes 0.6 thou/uL (0.11-0.59); #Neutrophils 3.2 thou/uL (1.40-6.50); %Basophils 2.1 % (0.0-1.0); %Eosinophils 1.6 % (0.0-10.0); %Lymphocytes 42.6 % (21.0-51.0); %Monocytes 8.5 % (0.0-10.0); %Neutrophils 45.2 % (42.0-75.0); Hemoglobin 14.4 g/dL (12.0-16.0); Mean Corpuscular HGB CONC 32.6 g/dL (32.0-36.0); Mean Corpuscular Hemoglobin 26.9 pg (27.0-31.0); Mean Corpuscular Volume 82.5 fL (78.0-98.0); Mean Platelet Volume 7.2 fL (7.4-10.4); Platelet Count 285 thou/uL (130-400); RBC Distribution Width 13.4 % (11.5-14.5); Red Blood Cell (RBC) Count 5.35 mill/uL (4.20-5.40); White Blood Cell (WBC) Count 7.1 thou/uL (4.8-10.8)
[2020-08-28 11:35] LABS: ALT (SGPT) 10 U/L (8-55); AST (SGOT) 11 U/L (5-34); Albumin 4.1 g/dL (3.5-5.0); Alkaline Phosphatase 174 U/L (40-110); Anion Gap 10 mmol/L (10-20); BUN (Urea Nitrogen) 6 mg/dL (9.8-20.1); Bilirubin, Total 0.3 mg/dL (0.2-1.2); Calc. Creatinine Clearance 0 mL/min (70-130); Calcium 10.2 mg/dL (7.8-10.44); Carbon Dioxide 32 mmol/L (22-29); Chloride 103 mmol/L (98-107); Globulin 3.2 g/dL (2.4-3.5); Glucose 87 mg/dL (70-105); Potassium 4.4 mmol/L (3.5-5.1); Protein, Total 7.3 g/dL (6.0-8.3); Sodium 141 mmol/L (136-145)
== END 2020-08-28 11:46 | disposition home or self-care (01) ==
LOC: ERS 09:54
DX: N93.9 Abnormal uterine and vaginal bleeding, unspecified (principal); Z79.899 Other long term (current) drug therapy; Z79.84 Long term (current) use of oral hypoglycemic drugs; I25.10 Atherosclerotic heart disease of native coronary artery without angina pectoris; I25.2 Old myocardial infarction; E11.9 Type 2 diabetes mellitus without complications; E03.9 Hypothyroidism, unspecified; E78.5 Hyperlipidemia, unspecified; E78.00 Pure hypercholesterolemia, unspecified; I10 Essential (primary) hypertension; J45.909 Unspecified asthma, uncomplicated; F17.210 Nicotine dependence, cigarettes, uncomplicated
CPT/HCPCS: 80053; 81003; 81015; 84703; 85025; 86850; 86900; 86901; 99284

== ENCOUNTER 2020-09-18 13:31 | Emergency (ER) | payer MEDICARE, MEDICAID ==
[2020-09-18 14:27] LABS: #Basophils 0.2 thou/uL (0.0-0.2); #Eosinphils 0.1 thou/uL (0.0-0.7); #Lymphocytes 2.9 thou/uL (1.20-3.40); #Monocytes 0.4 thou/uL (0.11-0.59); #Neutrophils 3.5 thou/uL (1.40-6.50); %Basophils 2.2 % (0.0-1.0); %Eosinophils 1.1 % (0.0-10.0); %Monocytes 5.7 % (0.0-10.0); %Neutrophils 50.1 % (42.0-75.0); Mean Corpuscular HGB CONC 33.5 g/dL (32.0-36.0); Mean Corpuscular Volume 80.5 fL (78.0-98.0); Mean Platelet Volume 7.4 fL (7.4-10.4); Platelet Count 260 thou/uL (130-400); RBC Distribution Width 13.8 % (11.5-14.5); Red Blood Cell (RBC) Count 5.56 mill/uL (4.20-5.40)
[2020-09-18 15:14] LABS: ALT (SGPT) 14 U/L (8-55); AST (SGOT) 18 U/L (5-34); Alkaline Phosphatase 155 U/L (40-110); Anion Gap 15 mmol/L (10-20); BUN (Urea Nitrogen) 7 mg/dL (9.8-20.1); Bilirubin, Total 0.6 mg/dL (0.2-1.2); Calc. Creatinine Clearance 0 mL/min (70-130); Carbon Dioxide 24 mmol/L (22-29); Chloride 101 mmol/L (98-107); Glucose 159 mg/dL (70-105); Lipase 41 U/L (8-78); Potassium 3.9 mmol/L (3.5-5.1); Sodium 136 mmol/L (136-145)
[2020-09-18] MEDS ORDERED: Mag-Al 1200 mg/1200 mg/30 ML UDCUP ONE (16:25)
[2020-09-18] MEDS ORDERED: Lidocaine Viscous Sol 2% 15 ml UD Cup ONE (16:25)
== END 2020-09-18 17:07 | disposition home or self-care (01) ==
LOC: ERS 13:31
DX: K29.70 Gastritis, unspecified, without bleeding (principal); I25.10 Atherosclerotic heart disease of native coronary artery without angina pectoris; I25.2 Old myocardial infarction; E78.5 Hyperlipidemia, unspecified; E78.00 Pure hypercholesterolemia, unspecified; F17.210 Nicotine dependence, cigarettes, uncomplicated
CPT/HCPCS: 36415; 80053; 83690; 85025; 96372; 99284; J0500

== ENCOUNTER 2021-01-02 08:47 | Outpatient (CLI) | payer MEDICARE, MEDICAID | END 2021-01-02 08:48 | disposition home or self-care (01) | LOC: BICMAMMO 08:47 | PROVIDERS: ATTEND Nurse Practitioner Family | DX: Z12.31 Encounter for screening mammogram for malignant neoplasm of breast (principal); Z90.11 Acquired absence of right breast and nipple | CPT/HCPCS: 77063; 77067 ==

== ENCOUNTER 2021-12-15 06:55 | Emergency (ER) | payer MEDICARE, MEDICAID | END 2021-12-15 07:27 | disposition home or self-care (01) | LOC: ERS 06:55 | DX: R11.0 Nausea (principal); I25.10 Atherosclerotic heart disease of native coronary artery without angina pectoris; I25.2 Old myocardial infarction; E03.9 Hypothyroidism, unspecified; E78.5 Hyperlipidemia, unspecified; I10 Essential (primary) hypertension; F17.210 Nicotine dependence, cigarettes, uncomplicated | CPT/HCPCS: 99281 ==

== ENCOUNTER 2022-07-26 08:50 | Observation (INO) | payer OTHER, MEDICAID ==
[2022-07-26 09:27] LABS: #Eosinphils 0.1 thou/uL (0.0-0.7); #Monocytes 0.6 thou/uL (0.11-0.59); #Neutrophils 3.5 thou/uL (1.40-6.50); %Basophils 0.6 % (0.0-1.0); %Eosinophils 1.1 % (0.0-10.0); %Neutrophils 56.3 % (42.0-75.0); Mean Corpuscular HGB CONC 32.3 g/dL (32.0-36.0); Mean Corpuscular Volume 80.3 fl (78.0-98.0); Mean Platelet Volume 7.8 fL (7.4-10.4); Platelet Count 225 10x3/uL (130-400); Red Blood Cell (RBC) Count 5.01 mill/uL (4.20-5.40); White Blood Cell (WBC) Count 6.1 10x3/uL (4.8-10.8)
[2022-07-26 09:49] LABS: ALT (SGPT) 16 U/L (8-55); AST (SGOT) 17 U/L (5-34); Albumin 3.7 g/dL (3.5-5.0); Alkaline Phosphatase 196 U/L (40-110); Anion Gap 13 mmol/L (10-20); BUN (Urea Nitrogen) 8 mg/dL (9.8-20.1); Bilirubin, Total 0.4 mg/dL (0.2-1.2); Calc. Creatinine Clearance 0 mL/min (70-130); Calcium 10.8 mg/dL (7.8-10.44); Carbon Dioxide 25 mmol/L (22-29); Chloride 102 mmol/L (98-107); Estimated GFR 70; Globulin 3.5 g/dL (2.4-3.5); Glucose 151 mg/dL (70-105); Lipase 56 U/L (8-78); Protein, Total 7.2 g/dL (6.0-8.3); Sodium 136 mmol/L (136-145)
[2022-07-26] MEDS ORDERED: Iopamidol 370 76% 100 ML VIAL ONE (10:58)
[2022-07-26] MEDS ORDERED: predniSONE 20 MG TAB ONE (11:54)
[2022-07-26] MEDS ORDERED: Magnesium 2 GM/50 ML BAG (IN WATER) ONE (11:55)
[2022-07-26] MEDS ORDERED: Ipratropium/Albuterol 3 ML NEB ONE (12:02)
[2022-07-26] MEDS ORDERED: Senokot S 8.6-50 MG TAB PO PRN (14:46)
[2022-07-26] MEDS ORDERED: Ondansetron PF 4 MG/2 ML Vial IVP PRN (14:46)
[2022-07-26] MEDS ORDERED: Acetaminophen 325 MG TAB PO PRN (14:46)
[2022-07-26] MEDS ORDERED: HYDROcodone/Acetaminophen 5/325 mg Tablet PO PRN (14:46)
[2022-07-26 15:24] LABS: Troponin I Less than 0.010 ng/mL (< 0.028)
[2022-07-26] MEDS ORDERED: Nicotine 21 MG PATCH TD SCH (16:15)
[2022-07-26 16:26] VITALS: BMI 48.9
[2022-07-26] MEDS: methylPREDNISolone Sod Succ 40 MG VIAL IVP SCH ×2 (16:57→20:33)
[2022-07-26 17:26] LABS: Troponin I 0.016 ng/mL (< 0.028)
[2022-07-26] MEDS: Ipratropium/Albuterol 3 ML NEB NEB SCH ×2 (18:27→23:35)
[2022-07-26] MEDS ORDERED: Ipratropium Bromide 2.5 ml Neb NEB SCH (18:30)
[2022-07-26] MEDS: guaiFENesin ER 600 MG TAB PO SCH (20:33)
[2022-07-27] MEDS: Ipratropium/Albuterol 3 ML NEB NEB SCH ×2 (03:02→07:54)
[2022-07-27 04:58] LABS: Anion Gap 17 mmol/L (10-20); BUN (Urea Nitrogen) 11 mg/dL (9.8-20.1); Calc. Creatinine Clearance 133 mL/min (70-130); Calcium 11.1 mg/dL (7.8-10.44); Carbon Dioxide 20 mmol/L (22-29); Chloride 103 mmol/L (98-107); Estimated GFR 74; Glucose 238 mg/dL (70-105); Potassium 4.5 mmol/L (3.5-5.1); Sodium 135 mmol/L (136-145)
[2022-07-27] MEDS ORDERED: Nicotine 21 MG PATCH TD SCH (09:00)
[2022-07-27] MEDS: guaiFENesin ER 600 MG TAB PO SCH (10:15)
[2022-07-27] MEDS: methylPREDNISolone Sod Succ 40 MG VIAL IVP SCH (10:15)
[2022-07-27] MEDS: Ipratropium Bromide 2.5 ml Neb NEB SCH ×2 (10:50→14:19)
[2022-07-27 11:53] VITALS: TEMP 97.7
[2022-07-27 12:08] VITALS: BP 159/80
== END 2022-07-27 15:05 | disposition home or self-care (01) ==
LOC: ERS 08:50 → 2SW 14:21
PROVIDERS: ADMIT Family Medicine; ATTEND Family Medicine
DX: J45.901 Unspecified asthma with (acute) exacerbation (principal); I11.0 Hypertensive heart disease with heart failure; I50.33 Acute on chronic diastolic (congestive) heart failure; R07.89 Other chest pain; E03.9 Hypothyroidism, unspecified; F17.210 Nicotine dependence, cigarettes, uncomplicated; R73.03 Prediabetes; I25.10 Atherosclerotic heart disease of native coronary artery without angina pectoris; J45.909 Unspecified asthma, uncomplicated; I25.2 Old myocardial infarction; E78.00 Pure hypercholesterolemia, unspecified; I08.3 Combined rheumatic disorders of mitral, aortic and tricuspid valves; E66.01 Morbid (severe) obesity due to excess calories; Z68.42 Body mass index [BMI] 45.0-49.9, adult; Z85.3 Personal history of malignant neoplasm of breast; Z79.82 Long term (current) use of aspirin; Z79.890 Hormone replacement therapy; Z79.899 Other long term (current) drug therapy; Z88.5 Allergy status to narcotic agent; Z95.1 Presence of aortocoronary bypass graft; Z95.5 Presence of coronary angioplasty implant and graft
CPT/HCPCS: 71045; 71275; 80048; 80053; 83690; 84443; 84484 ×2; 85025; 85379; 93005; 93306; 94640 ×3; 94760; 96375; 96376 ×2; 97116; G0378 ×3; 36415; J2920; J3475; J7512; J7611; J7620; Q9967

== ENCOUNTER 2022-11-03 18:08 | Emergency (ER) | payer OTHER, MEDICAID ==
[2022-11-03] MEDS ORDERED: Magnesium 2 GM/50 ML BAG (IN WATER) ONE (18:39)
[2022-11-03] MEDS ORDERED: Mag-Al 1200 mg/1200 mg/30 ML UDCUP ONE (18:39)
[2022-11-03] MEDS ORDERED: methylPREDNISolone Sod Succ/PF 125 MG/2 ML VIAL ONE (18:39)
[2022-11-03] MEDS ORDERED: Ipratropium/Albuterol 3 ML NEB ONE (18:45)
[2022-11-03 19:24] LABS: #Eosinphils 0.1 thou/uL (0.0-0.7); #Monocytes 0.6 thou/uL (0.11-0.59); #Neutrophils 3.3 thou/uL (1.40-6.50); %Basophils 0.4 % (0.0-1.0); %Eosinophils 0.9 % (0.0-10.0); %Lymphocytes 40.9 % (21.0-51.0); %Monocytes 9.3 % (0.0-10.0); %Neutrophils 48.4 % (42.0-75.0); Hematocrit 41.4 % (36.0-47.0); Hemoglobin 13.6 g/dL (12.0-16.0); Mean Corpuscular HGB CONC 32.9 g/dL (32.0-36.0); Mean Corpuscular Volume 79.2 fl (78.0-98.0); Mean Platelet Volume 9.3 fL (7.4-10.4); Platelet Count 259 10x3/uL (130-400); RBC Distribution Width 14.7 % (11.5-14.5); Red Blood Cell (RBC) Count 5.23 mill/uL (4.20-5.40); White Blood Cell (WBC) Count 6.9 10x3/uL (4.8-10.8)
[2022-11-03 19:49] LABS: Bacteria/HPF None Seen HPF (None Seen); Bilirubin Negative (Negative); Blood, Urine Negative (Negative); CAUTI Indications for Culture Pelvic or flank pain; Clarity Clear (Clear); Glucose, Urine (Dipstick) Normal (Negative); Ketone, Urine Negative (Negative); Leukocyte Negative Leu/uL (Negative); Nitrite Negative (Negative); Protein, Urine (Dipstick) 20 mg/dL (Neg-Trace); RBC/HPF 0-3 HPF (0-3); Specific Gravity, Urine 1.016 (1.002-1.036); Squamous Epithelial 0-3 HPF (0-3); Urobilinogen Normal mg/dL (Less than 2); WBC/HPF 0-3 HPF (0-3)
[2022-11-03 19:51] LABS: Urine Culture Reflex No No
[2022-11-03 19:55] LABS: ALT (SGPT) 17 U/L (8-55); AST (SGOT) 25 U/L (5-34); Albumin 3.9 g/dL (3.5-5.0); Alkaline Phosphatase 155 U/L (40-110); Anion Gap 14 mmol/L (10-20); BUN (Urea Nitrogen) 7 mg/dL (9.8-20.1); Bilirubin, Total 0.3 mg/dL (0.2-1.2); Calc. Creatinine Clearance 0 mL/min (70-130); Calcium 10.5 mg/dL (7.8-10.44); Carbon Dioxide 29 mmol/L (22-29); Chloride 101 mmol/L (98-107); Estimated GFR 63; Globulin 3.7 g/dL (2.4-3.5); Glucose 109 mg/dL (70-105); Lipase 55 U/L (8-78); Potassium 4.2 mmol/L (3.5-5.1); Protein, Total 7.6 g/dL (6.0-8.3); Sodium 140 mmol/L (136-145)
[2022-11-03 19:57] LABS: Troponin I Less than 0.010 ng/mL (< 0.028)
== END 2022-11-03 20:45 | disposition home or self-care (01) ==
LOC: ERS 18:08
DX: R10.13 Epigastric pain (principal); K21.9 Gastro-esophageal reflux disease without esophagitis; E11.9 Type 2 diabetes mellitus without complications; E03.9 Hypothyroidism, unspecified; E78.00 Pure hypercholesterolemia, unspecified; I10 Essential (primary) hypertension; I25.10 Atherosclerotic heart disease of native coronary artery without angina pectoris; Z79.82 Long term (current) use of aspirin; Z79.899 Other long term (current) drug therapy; Z79.84 Long term (current) use of oral hypoglycemic drugs
CPT/HCPCS: 36415; 71045; 80053; 81001; 83605; 83690; 83880; 84484; 85025; 85379; 93005; 94640; 96365; 96375; J2930; J3475; J7620

== ENCOUNTER 2023-07-31 06:06 | Day surgery (SDC) | payer OTHER, MEDICAID ==
[2023-07-30 11:38] VITALS: BMI 48.0
[2023-07-31] MEDS ORDERED: Acetaminophen 500 MG TAB ONE (06:28)
[2023-07-31] MEDS ORDERED: Ketorolac Tromethamine 30 MG (1 mL) VIAL ONE (06:28)
[2023-07-31] MEDS ORDERED: CEFAZOLIN 2 GM VIAL ONE (06:28)
[2023-07-31] MEDS ORDERED: Sodium Chloride 0.9% 100 ML ONE (06:28)
[2023-07-31] MEDS ORDERED: EPINEPHrine 1 MG/ML VIAL ONE (06:39)
[2023-07-31] MEDS ORDERED: Bupivacaine 0.25% HCL 30 ML VIAL ONE (06:39)
[2023-07-31] MEDS ORDERED: Lidocaine 2% PF 5 ML VIAL ONE (06:49)
[2023-07-31] MEDS ORDERED: Dexmedetomidine 200 MCG/2 ML VIAL ONE (07:18)
[2023-07-31] MEDS ORDERED: PROPOFOL 40 ML ONE (07:18)
[2023-07-31] MEDS ORDERED: Midazolam HCl 2 mg/2 ml Vial ONE (07:19)
[2023-07-31] MEDS ORDERED: fentaNYL PF 100 MCG/2 ML SYRINGE ONE (07:19)
[2023-07-31] MEDS ORDERED: Lidocaine 1% PF 5 ML VIAL ONE (08:40)
[2023-07-31] MEDS ORDERED: ePHEDrine Sulfate 50 MG/10 ML VIAL ONE (09:05)
[2023-07-31] MEDS ORDERED: Dexamethasone 20 MG/5 ML VIAL ONE (09:17)
[2023-07-31] MEDS ORDERED: Ondansetron PF 4 MG/2 ML Vial ONE (09:17)
[2023-07-31] MEDS ORDERED: HYDROcodone/Acetaminophen 5/325 mg Tablet ONE (09:40)
== END 2023-07-31 10:00 | disposition home or self-care (01) ==
LOC: SDC 06:06
PROVIDERS: ATTEND Specialist
PROC: 0JH63WZ Insertion of Totally Implantable Vascular Access Device into Chest Subcutaneous Tissue and Fascia, Percutaneous Approach (ICD-10-PCS; principal; 2023-07-31)
DX: C50.912 Malignant neoplasm of unspecified site of left female breast (principal); Z85.3 Personal history of malignant neoplasm of breast; E78.5 Hyperlipidemia, unspecified; F20.9 Schizophrenia, unspecified; E03.9 Hypothyroidism, unspecified; I10 Essential (primary) hypertension; E78.00 Pure hypercholesterolemia, unspecified; Z79.82 Long term (current) use of aspirin; Z79.890 Hormone replacement therapy; Z79.899 Other long term (current) drug therapy; Z98.51 Tubal ligation status; Z98.890 Other specified postprocedural states; Z90.12 Acquired absence of left breast and nipple
CPT/HCPCS: 36561; 71045; C1788; J0171; J0665; J1100; J1642; J1885; J2001; J2250; J2405; J2704; J3490